=== PATIENT | male | born 1935 | race Caucasian/White ===

== ENCOUNTER → 2017-03-20 | Outpatient (CLI) | payer OTHER ==
[~2017-03-20] MED LIST: ALBUAER19 INH; ASPCH81X PO; AVD5 PO; BNDIS50 IV; CEPH500C PO; CLBPO15 TOP; DEXA10IN IV; FOLI1TAB7 PO; GADAVIST IV PRN; LEVO-366 PO; LPT/20 PO; METH2.5T PO; MOME100A INH; MRLP17 PO; PRED-301 PO; PRT40 PO; PRVHFAIN; SODI0.9S IV; SYMIN160 INH; TAMS0.4C38 PO; TRMCR515 TOP; XPNINS INH; XPNINS NEB; ZFRI4 IV; [UNRECOGNIZED DRUG - CODE] IV; [UNRECOGNIZED DRUG - CODE] IV; [UNRECOGNIZED DRUG - CODE] IV; [UNRECOGNIZED DRUG - CODE] IV; [UNRECOGNIZED DRUG - REMARK]
--- NOTE | 2017-03-20 08:01 | DIAGNOSTIC IMAGING REPORT ---
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 TECHNIQUE: Multisequence, multiplanar MR imaging of the brain was performed before and after the administration of intravenous contrast. IV contrast: 10 mL of Gadavist. COMPARISON: PET/CT from 01/24/2017. FINDINGS: Image quality is mildly degraded by motion artifact limiting diagnostic sensitivity of several sequences. Proportional ventricular and sulcal dilatation likely age-related parenchymal volume loss. Abnormal T2/FLAIR hyperintensity along the left inferior frontal region involving the overlying cortex with associated regional volume loss may indicate prior left middle cerebral artery territory infarct. No mass effect or midline shift. No hemorrhage or acute territorial infarct. No extra-axial fluid collection. T2 skull base flow voids preserved. Bilateral kaibab lenses are absent. Partially visualized large soft tissue mass at the posterior right base of the neck consistent with known disease. No abnormal parenchymal enhancement. IMPRESSION: 1. No convincing evidence of intracranial metastatic disease allowing for mild degradation of image quality secondary to motion artifact. 2. Prior left MCA territory infarct. Electronically signed by: Ricardo Osorio M.D. 03/20/2017 8:00 AM Dictated Date/Time: 03/20/2017 7:49 AM
== END | disposition home or self-care (01) ==
LOC: C.MRI 06:06
PROVIDERS: ATTEND Internal Medicine Hematology & Oncology
DX: C4A.9 Merkel cell carcinoma, unspecified (principal)

== ENCOUNTER 2017-03-26 09:51 | Day surgery (SDC) | payer OTHER ==
[~2017-03-26] VITALS: Ht 177.8 cm; Wt 100.0 kg
[~2017-03-26 09:51] MED LIST changes: +ATROPINE SULFATE 0.1 MG/ML 5ML SYR IV PRN; -AVD5 PO; -BNDIS50 IV; +CEFAZOLIN 2000 MG/60 ML D5W IV SCH; -CEPH500C PO; -DEXA10IN IV; +EpHEDrine SULFATE INJ 50 MG/ML AMP IV PRN; +FENTANYL CITRATE INJ 50 MCG/1 ML 2 ML VIAL IV PRN; -GADAVIST IV PRN; +LACTATED RINGER'S 1000ML 1,000 ML IV SCH; -LEVO-366 PO; -MOME100A INH; -MRLP17 PO; +ONDANSETRON INJ 2 MG/ML 2 ML VIAL IV PRN; -PRT40 PO; -PRVHFAIN; -SODI0.9S IV; -TAMS0.4C38 PO; -TRMCR515 TOP; -ZFRI4 IV; -[UNRECOGNIZED DRUG - CODE] IV; -[UNRECOGNIZED DRUG - CODE] IV; -[UNRECOGNIZED DRUG - CODE] IV; -[UNRECOGNIZED DRUG - CODE] IV; -[UNRECOGNIZED DRUG - REMARK]
[2017-03-26 10:10] VITALS: BP 147/78; PULSE 89; TEMP 36.5; O2SAT 97; Ht 177.8 cm; Wt 100.0 kg
--- NOTE | 2017-03-26 11:10 | History & Physical Bridge Note ---
H&P Re-Evaluation Bridge Note: I have examined the patient, reviewed the History & Physical and in the interval since the performance of the History & Physical I have noted the following changes of clinical significance: No changes noted
[2017-03-26] MEDS ORDERED: MIDAZOLAM HCL 1 MG/ML 2ML VIAL ONE ×2 (11:36→13:47)
[2017-03-26] MEDS ORDERED: FENTANYL CITRATE INJ 50 MCG/1 ML 2 ML VIAL ONE ×2 (11:36→13:47)
[2017-03-26] MEDS ORDERED: LIDOCAINE HCL 2% 2 ML VIAL (20MG/ML) ONE ×2 (11:36→14:08)
[2017-03-26] MEDS ORDERED: PROPOFOL IV EMULSION 10 MG/ML 20 ML VIAL IV ONE ×4 (11:36→14:42)
[2017-03-26] MEDS ORDERED: LIDOCAINE HCL 1% 20 ML VIAL ONE (13:49)
--- NOTE | 2017-03-26 16:05 | Anesthesiology Progress Note ---
Anesthesia Post Op Note Date & Time Mar 26, 2017 at 16:05 Vital Signs Pain Intensity: 0 Vital Signs Past 12 Hours Date Time Temp Pulse Resp B/P (MAP) Pulse Ox O2 Delivery O2 Flow Rate FiO2 03/26/17 15:51 36.7 59 18 136/76 96 Room Air 03/26/17 10:10 36.5 89 20 147/78 (101) 97 Room Air Notes Mental Status: alert / awake / arousable, participated in evaluation Pt Amnestic to Procedure: Yes Nausea / Vomiting: adequately controlled Pain: adequately controlled Airway Patency, RR, SpO2: stable & adequate BP & HR: stable & adequate Hydration State: stable & adequate Anesthetic Complications: no major complications apparent
--- NOTE | 2017-03-26 16:20 | DIAGNOSTIC IMAGING REPORT ---
SINGLE VIEW CHEST CLINICAL HISTORY: Postoperative examination. Central venous infusion port placement. FINDINGS: An AP, portable, upright chest radiograph is compared to study dated 06/03/2016. The examination is degraded by portable technique and patient rotation. A left subclavian central venous infusion port has been placed. The tip projects over the superior vena cava. There is slight irregularity/kinking of the catheter. The heart is enlarged and there is atherosclerotic calcification of the thoracic aorta. The pulmonary vasculature is noncongested. Emphysema is suspected. Chronic interstitial thickening is similar to previous, and airspace opacities are again seen at the left lung base. No pneumothorax is seen post procedure. The skeletal structures are osteopenic. Degenerative change is noted throughout the thoracic spine. IMPRESSION: 1. A left subclavian central venous infusion port is new from previous. No pneumothorax is seen post procedure. 2. There is focal irregularity/kinking of the catheter which is of indeterminant significance. 3. Cardiomegaly without radiographic evidence of congestive failure. 4. Airspace opacities are present at the left lung base, possibly representing scar/atelectasis. Correlate clinically for evidence of a superimposed infectious/inflammatory pneumonitis. Electronically signed by: Ar Méndez M.D. 03/26/2017 4:19 PM Dictated Date/Time: 03/26/2017 4:15 PM
--- NOTE | 2017-03-26 16:27 | [facility] Operative Report ---
Operative Report Operative Date Mar 26, 2017. Pre-Operative Diagnosis [place] cell carcinoma, need for chemotherapy Post-Operative Diagnosis [place] cell carcinoma, need for chemotherapy Procedure(s) Performed Infusaport Insertion, left subclavian Surgeon Dr. Donna Swenson Head Waitress Surgeon(s) none Estimated Blood Loss 10ml Findings Difficult stick, multiple attempts. Good venous flow when stick obtained, wire went up into internal jugular on first 2 attempts, directed down under fluoroscopy into superior vena cava. Fluids 800cc Specimens none per surgeon Drains None Anesthesia Monitored local anethetic, 22ml of 1% lidocaine injected subcutaneously Complication(s) None Disposition Recovery Room / PACU Indications Bhavik Pabon is an 81 year old man with [place] cell carcinoma who is in need of an Infusaport for chemotherapy administration. Indications, risks, benefits and potential complications of infusaport insertion were discussed with the patient and his family in detail. All questions answered to apparent satisfaction. Patient elected to proceed with the operation and freely signed the consent form. Description of Procedure Patient was brought to the operating room and identified as Bhavik Pabon, 31. He was placed on the operating table in supine position with a shoulder roll to open up the left subclavian area. Anesthesia was induced. The left subclavian area was prepped and draped in the usual sterile fashion. A time out was held, verifying correct patient, procedure, equipment available, pre operative antibiotics, allergies and personnel. Local anesthetic was injected at the puncture site. A finder needle was used to access the left subclavian vein. Due to large clavicles and body habitus, multiple sticks were required to access the vein. Once accessed, good venous draw back was appreciated; the wire was fed without difficulty, but was found to be ascending into the internal jugular vein on fluoroscopy. Another stick was required, and once the left subclavian was accessed, the wire was directed under fluoroscopy and was fed easily into the superior vena cava. The needle was removed over the wire, leaving the wire in place. Next, an incision was made caudally to the stick site and a subcutaneous pocket was created large enough to accomodate the infusaport. A tunnel was created from the pocket to the puncture site, and the catheter was fed through the tunnel. Next, the dilator was inserted over the wire to dilate the puncture site. The wire was removed, leaving the outer sheath in place. The catheter was fed through the sheath, verified to be in good position by fluoroscopy; the catheter was drawn back under fluoroscopy until the tip was at the junction of the superior vena cava and right atrium without ectopy on the monitor. The catheter was cut to size, and fitted to the infusaport, placing the plastic cuff tightly over the junction. Once connected , the infusaport was accessed using a Osorio needle, verified to draw back easily , and was flushed with 4cc of heparinized saline. The infusaport was secured in the subcutaneous pocket using two prolene sutures. The sponge and instrument counts were verified to be correct by the nurse in charge. Subcutaneous tissue at the infusaport pocket was approximated using 3-0 vicryl in interrupted fashion. Skin was closed over the port pocket and at the puncture site with 4-0 monocryl in running fashion and Dermabond was applied. Patient was then awakened from anesthesia and brought to the PACU, having suffered no untoward events. A chest x-ray is ordered to be completed in the PACU to verify the absence of pneumothorax. I attest to the content of the Intraoperative Record and any orders documented therein. Any exceptions are noted below.
--- NOTE | 2017-03-26 16:33 | Discharge Instructions ---
Discharge Instructions Date of Service Mar 26, 2017. Visit Reason for Visit: [place] Cell Carcinoma Discharge Discharge Diagnosis / Problem: [place] Cell Carcinoma, need for chemotherapy Discharge Goals Goal(s): Decrease discomfort, Improve function Activity Recommendations Activity Limitations: resume your previous activity Anesthesia . Post Anesthesia Instructions: If you have had General Anesthesia or IV Sedation: * Do not drive today. * Resume driving when surgeon permits. * Do not make important decisions or sign legal documents today. * Call surgeon for: 1. Temperature elevations greater than 101 degrees F. 2. Uncontrollable pain. 3. Excessive bleeding. 4. Persistent nausea and vomiting. 5. Medication intolerance (nausea, vomiting or rash). * For nausea and vomiting use only clear liquids such as: tea, soda, bouillon until nausea subsides, then gradually increase diet as tolerated. * If you have any concerns or questions, call your surgeon's office. If physician is unavailable and it is an emergency, call 911 or go to the nearest emergency room. . Diet Recommendations Recommended Home Diet: no limitations, resume previous diet Procedures Procedures Performed: Infusaport Insertion, left subclavian Pending Studies Studies pending at discharge: no Work Instructions Additional Instructions: -The Infusaport is ready to use. It may be accessed as per chemotherapy plan from your Oncologist. -You have Dermabond, like a glue, over your incisions / puncture sites. This will fall off on its own over time. You have absorbable sutures in the skin, which will not need to be removed. -You may shower - just let warm, soapy water wash gently over the surgery site. Do not scrub. -Do not soak, as in a bath tub or swimming pool for at least 2 weeks. -You do not need to follow up in Surgery Clinic unless you are having problems. You may call [phone] if you have any questions or concerns, or if you would like to schedule an appointment. -You may take Tyelnol or Ibuprofen as needed for pain; use as directed. Medical Emergencies . Who to Call and When: Medical Emergencies: If at any time you feel your situation is an emergency, please call 911 immediately. . Non-Emergent Contact Non-Emergency issues call your: Primary Care Provider, Oncologist, Surgeon Call Non-Emergent contact if: temperature is above 101, your pain is not controlled, your pain is worsening, wound has increased drainage, wound has increased redness, you have any medication questions . . "Provider Documentation" section prepared by Donna wSenson. .
[2017-03-26 16:40] VITALS: BP 157/91; PULSE 57; TEMP 36.5; O2SAT 93
[2017-03-26 17:05] VITALS: BP 165/88; PULSE 99; TEMP 36.4; O2SAT 94
== END 2017-03-26 17:20 | disposition home or self-care (01) ==
LOC: C.ACU 09:51
PROVIDERS: ATTEND Student in an Organized Health Care Education/Training Program
DX: C4A.9 Merkel cell carcinoma, unspecified (principal); J44.9 Chronic obstructive pulmonary disease, unspecified; E11.9 Type 2 diabetes mellitus without complications; K21.9 Gastro-esophageal reflux disease without esophagitis; H90.6 Mixed conductive and sensorineural hearing loss, bilateral; E66.9 Obesity, unspecified; M06.9 Rheumatoid arthritis, unspecified; Z68.39 Body mass index [BMI] 39.0-39.9, adult; N40.0 Benign prostatic hyperplasia without lower urinary tract symptoms; Z79.82 Long term (current) use of aspirin; Z79.899 Other long term (current) drug therapy

== ENCOUNTER 2017-04-20 13:03 | Emergency (ER) | payer OTHER ==
[~2017-04-20] VITALS: Ht 177.8 cm; Wt 99.7 kg
[~2017-04-20 13:03] MED LIST changes: -ATROPINE SULFATE 0.1 MG/ML 5ML SYR IV PRN; -CEFAZOLIN 2000 MG/60 ML D5W IV SCH; -CLBPO15 TOP; -EpHEDrine SULFATE INJ 50 MG/ML AMP IV PRN; -FENTANYL CITRATE INJ 50 MCG/1 ML 2 ML VIAL IV PRN; -LACTATED RINGER'S 1000ML 1,000 ML IV SCH; -ONDANSETRON INJ 2 MG/ML 2 ML VIAL IV PRN; -XPNINS INH
[2017-04-20 13:07] VITALS: TEMP 36.5; Ht 177.8 cm; Wt 99.7 kg
[2017-04-20] MEDS ORDERED: SODIUM CHLORIDE 0.9% 1000ML 1,000 ML IV STA (13:34)
[2017-04-20] MEDS ORDERED: [UNRECOGNIZED DRUG - REMARK] (13:53)
[2017-04-20] MEDS ORDERED: PRVHFAIN (13:53)
[2017-04-20 13:57] LABS: BASO % 0.4 %; BASO ABS # 0.02 K/uL (0-0.2); COMPLETE YES; EOS % 3.4 %; HEMATOCRIT 36.4 % (42-52); IG% 0.2 %; LYMPH % 17.9 %; LYMPH ABS # 0.99 K/uL (1.2-3.4); MEAN CELL VOLUME 91.5 fL (80-100); MEAN CORPUSCULAR HEMOGLOBIN 31.7 pg (25-34); MEAN CORPUSCULAR HGB CONC 34.6 g/dl (32-36); MEAN PLATELET VOLUME 10.5 fL (7.4-10.4); MONO % 9.9 %; NEUT % 68.2 %; PLATELET COUNT 148 K/uL (130-400); RED BLOOD COUNT 3.98 M/uL (4.7-6.1); WHITE BLOOD COUNT 5.53 K/uL (4.8-10.8)
[2017-04-20 14:13] LABS: BUN/CREATININE RATIO 19.8 (10-20); CALCIUM 8.6 mg/dl (8.5-10.1); CREATININE 0.88 mg/dl (0.60-1.40); MAGNESIUM 2.3 mg/dl (1.8-2.4)
--- NOTE | 2017-04-20 14:14 | DIAGNOSTIC IMAGING REPORT ---
CHEST ONE VIEW PORTABLE CLINICAL HISTORY: Weakness. Tachycardia. COMPARISON STUDY: Chest radiograph March 26, 2017 and PET/CT March 21, 2017. FINDINGS: A left subclavian [id number] remains in place. Mild cardiomegaly is unchanged. There is no evidence of pulmonary edema. No pneumothorax or pleural effusion is present. There is no consolidation to suggest pneumonia. Left lower lung interstitial thickening is unchanged and likely chronic. IMPRESSION: No change in appearance of the chest. Stable cardiomegaly and left lower lung interstitial thickening which is likely chronic. Electronically signed by: Anders Tripp M.D. 04/20/2017 2:13 PM Dictated Date/Time: 04/20/2017 2:11 PM
[2017-04-20 14:16] LABS: ALB/GLOB RATIO 0.9 (0.9-2)
[2017-04-20] MEDS ORDERED: OPTIRAY 320 IV PRN (15:15)
[2017-04-20 15:35] LABS: URINE APPEARANCE CLOUDY (CLEAR); URINE BILIRUBIN NEG (NEG); URINE COLOR YELLOW; URINE NITRITE NEG (NEG); URINE SPECIFIC GRAVITY 1.019 (1.000-1.030); UROBILINOGEN NEG (NEG); ZZURINE CULT IF INDIC CATH YES
[2017-04-20 15:36] LABS: MANUAL MICROSCOPIC REQUIRED? NO; REVIEW REQ? YES
[2017-04-20 15:45] LABS: URINE MUCUS PRESENT (NONE PRSENT)
--- NOTE | 2017-04-20 16:02 | DIAGNOSTIC IMAGING REPORT ---
CT OF THE ABDOMEN AND PELVIS WITH CONTRAST CLINICAL HISTORY: Lower abdominal pain and diarrhea. COMPARISON STUDY: PET/CT March 21, 2017. TECHNIQUE: Following IV administration of 93 mL of Optiray-320, axial images of the abdomen and pelvis were obtained from the lung bases to the proximal femurs. Images were reviewed in the axial, sagittal, and coronal planes. IV contrast was administered without complication. A dose lowering technique was utilized adhering to the principles of ALARA. CT DOSE: 939.62 mGycm FINDINGS: Visualized portions of the lower chest demonstrate bronchiectasis, greatest within the left lower lobe and lingula. There are subpleural reticulation with possible early honeycombing. A 5 mm hypodense right hepatic lobe lesion is too small to characterize but is likely benign. There is slight nodularity of the liver surface. There is no biliary or pancreatic ductal dilatation. The spleen, adrenal glands, kidneys and pancreas are unremarkable with exception of a 7 mm left renal cyst. There is a 3 cm infrarenal abdominal aortic aneurysm without evidence for rupture. Extensive colonic diverticulosis is noted without evidence for acute diverticulitis. The appendix is normal. There are bilateral fat-containing inguinal hernias. The urinary bladder is moderately distended. There is mild adjacent infiltration. There are no suspicious osseous lesions. There is no lymphadenopathy. IMPRESSION: 1. Moderate distention of the urinary bladder with mild adjacent infiltration which could be correlated with urinalysis. Mildly enlarged prostate. 2. Extensive colonic diverticulosis without evidence for acute diverticulitis. Normal appendix. 3. 3 cm infrarenal abdominal aortic aneurysm. Electronically signed by: Anders Tripp M.D. 04/20/2017 4:01 PM Dictated Date/Time: 04/20/2017 3:51 PM
--- NOTE | 2017-04-20 17:00 | EMERGENCY ROOM VISIT NOTE ---
ED Visit Note First contact with patient: 13:14 Patient was seen by our PA/CAR BRACER. I was involved in the patient's care and did evaluate the patient myself. I was involved in the care throughout the ER stay. The patient has neck cancer. He presents with some urinary and bowel issues. He has been hydrated. He does appear to have some urinary retention with a UTI. He will be treated for this problem. He does not want to stay in the hospital. He has agreed to return if worsening.
[2017-04-20] MEDS ORDERED: CEFTRIAXONE SOD INJ 1 GM ADDVIAL IV STA (17:02)
[2017-04-20] MEDS ORDERED: CEPH500C PO (17:22)
--- NOTE | 2017-04-20 17:25 | EMERGENCY ROOM VISIT NOTE ---
History First contact with patient: 13:14 Chief Complaint: DEHYDRATION Stated Complaint: DEYHYRADTED,HIGH HR,LOSS OF BOWELS/BLADDER Nursing Triage Summary: pt arrives with family from Dr Self office , states pt has had loss of control of Bowel and bladder 2 days ago , pt denies pain in neck , pt currently being tx with chemo and radiation for tumor on R side of neck History of Present Illness The patient is a 81 year old male who presents to the Emergency Room with complaints of possible dehydration. 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 He states that over the past 2 days, he has had diarrhea and has been unable to control his urination. He has had a few episodes of urinary incontinence. The patient has not had much to eat. He saw his primary care provider's office today and was sent here for evaluation of possible dehydration. He was told that his blood pressure was low for him and his heart rate was elevated. The patient did have some abdominal discomfort a few days ago, but denies any pain at this time. He denies any discomfort at this time. He denies fevers/chills, chest pain or shortness of breath. He denies any blood in the stools. He denies recent antibiotic use. Review of Systems A complete 10 point review of systems was reviewed with the patient with pertinent positives and negatives as per history of present illness. All else were negative. Past Medical/Surgical History Medical Problems: (1) BPH (benign prostatic hypertrophy) (2) Bronchiectasis (3) Chronic steroid use (4) COPD (chronic obstructive pulmonary disease) (5) Dyslipidemia (6) Eczema (7) GERD (gastroesophageal reflux disease) (8) Pulmonary fibrosis (9) PVC's (premature ventricular contractions) (10) Rheumatoid arthritis (11) Thoracic aortic aneurysm Surgical Problems: (1) Status post appendectomy Family History Cirrhosis of liver BROTHER Leukemia MOTHER Social History Smoking Status: Never Smoker Marital Status: Housing Status: lives with family Occupation Status: retired Current/Historical Medications Scheduled Aspirin (Aspirin Chewable), 81 MG PO DAILY Atorvastatin (Atorvastatin Calcium), 20 MG PO DAILY Budesonide/Formoterol Fumarate (Symbicort 160/4.5 Inhaler ), 2 PUFFS INH BID Cephalexin Monohydrate (Keflex), 500 MG PO TID Folic Acid (Folvite), 1 MG PO DAILY Methotrexate Sodium (Methotrexate), 7.5 MG PO WK Prednisone (Prednisone), 2.5 MG PO QAM Scheduled PRN Levalbuterol (Levalbuterol HCl), 3 ML NEB Q8 PRN for Wheezing Miscellaneous Medications Albuterol (Ventolin Hfa) [chemo radiation] Physical Exam Vital Signs Date Time Temp Pulse Resp B/P (MAP) Pulse Ox O2 Delivery O2 Flow Rate FiO2 04/20/17 18:56 68 18 135/71 95 04/20/17 18:39 67 18 136/76 94 Room Air 04/20/17 17:10 71 18 144/80 95 Room Air 04/20/17 15:59 73 18 145/99 97 Room Air 04/20/17 14:15 73 18 127/81 93 Room Air 04/20/17 13:35 79 04/20/17 13:07 36.5 84 20 159/90 95 Room Air Pain Rating (0-10): 0 Physical Exam VITALS: Vitals are noted on the nurse's note and reviewed by myself. Vital signs stable. GENERAL: This is an 81-year-old male, in no acute distress, nondiaphoretic, well -developed well-nourished. EARS: External auditory canals clear, tympanic membranes pearly hale without erythema or effusion bilaterally. EYES: Pupils equal round and reactive to light and accommodation. Conjunctivae without injection, sclerae without icterus. Extraocular movements intact. MOUTH: Mucous membranes moist. NECK: There is a large mass to the right side of the neck. HEART: Regular rate and rhythm without murmurs gallops or rubs. LUNGS: Clear to auscultation bilaterally without wheezes, rales or rhonchi. ABDOMEN: Soft, nontender to palpation. NEURO: Patient was alert and oriented to person place and time. Medical Decision & Procedures ER Provider Diagnostic Interpretation: CHEST ONE VIEW PORTABLE FINDINGS: A left subclavian Fegben-a-Gtlo remains in place. Mild cardiomegaly is unchanged. There is no evidence of pulmonary edema. No pneumothorax or pleural effusion is present. There is no consolidation to suggest pneumonia. Left lower lung interstitial thickening is unchanged and likely chronic. IMPRESSION: No change in appearance of the chest. Stable cardiomegaly and left lower lung interstitial thickening which is likely chronic. CT OF THE ABDOMEN AND PELVIS WITH CONTRAST FINDINGS: Visualized portions of the lower chest demonstrate bronchiectasis, greatest within the left lower lobe and lingula. There are subpleural reticulation with possible early honeycombing. A 5 mm hypodense right hepatic lobe lesion is too small to characterize but is likely benign. There is slight nodularity of the liver surface. There is no biliary or pancreatic ductal dilatation. The spleen, adrenal glands, kidneys and pancreas are unremarkable with exception of a 7 mm left renal cyst. There is a 3 cm infrarenal abdominal aortic aneurysm without evidence for rupture. Extensive colonic diverticulosis is noted without evidence for acute diverticulitis. The appendix is normal. There are bilateral fat-containing inguinal hernias. The urinary bladder is moderately distended. There is mild adjacent infiltration. There are no suspicious osseous lesions. There is no lymphadenopathy. IMPRESSION: 1. Moderate distention of the urinary bladder with mild adjacent infiltration which could be correlated with urinalysis. Mildly enlarged prostate. 2. Extensive colonic diverticulosis without evidence for acute diverticulitis. Normal appendix. 3. 3 cm infrarenal abdominal aortic aneurysm. Laboratory Results 04/20/17 13:40 Red Blood Count 3.98, Mean Corpuscular Volume 91.5, Mean Corpuscular Hemoglobin 31.7, Mean Corpuscular Hemoglobin Concent 34.6, Mean Platelet Volume 10.5, Neutrophils (%) (Auto) 68.2, Lymphocytes (%) (Auto) 17.9, Monocytes (%) (Auto) 9.9, Eosinophils (%) (Auto) 3.4, Basophils (%) (Auto) 0.4, Neutrophils # (Auto) 3.77, Lymphocytes # (Auto) 0.99, Monocytes # (Auto) 0.55, Eosinophils # (Auto) 0.19, Basophils # (Auto) 0.02 04/20/17 13:40 Test 04/20/17 13:40 04/20/17 15:05 White Blood Count 5.53 K/uL (4.8-10.8) Red Blood Count 3.98 M/uL (4.7-6.1) Hemoglobin 12.6 g/dL (14.0-18.0) Hematocrit 36.4 % (42-52) Mean Corpuscular Volume 91.5 fL (80-100) Mean Corpuscular Hemoglobin 31.7 pg (25-34) Mean Corpuscular Hemoglobin Concent 34.6 g/dl (32-36) Platelet Count 148 K/uL (130-400) Mean Platelet Volume 10.5 fL (7.4-10.4) Neutrophils (%) (Auto) 68.2 % Lymphocytes (%) (Auto) 17.9 % Monocytes (%) (Auto) 9.9 % Eosinophils (%) (Auto) 3.4 % Basophils (%) (Auto) 0.4 % Neutrophils # (Auto) 3.77 K/uL (1.4-6.5) Lymphocytes # (Auto) 0.99 K/uL (1.2-3.4) Monocytes # (Auto) 0.55 K/uL (0.11-0.59) Eosinophils # (Auto) 0.19 K/uL (0-0.5) Basophils # (Auto) 0.02 K/uL (0-0.2) RDW Standard Deviation 52.1 fL (36.4-46.3) RDW Coefficient of Variation 15.9 % (11.5-14.5) Immature Granulocyte % (Auto) 0.2 % Immature Granulocyte # (Auto) 0.01 K/uL (0.00-0.02) Anion Gap 6.0 mmol/L (3-11) Est Creatinine Clear Calc Drug Dose 75.3 ml/min Estimated GFR () 92.1 Estimated GFR (Non- 79.4 BUN/Creatinine Ratio 19.8 (10-20) Calcium Level 8.6 mg/dl (8.5-10.1) Magnesium Level 2.3 mg/dl (1.8-2.4) Total Bilirubin 0.8 mg/dl (0.2-1) Aspartate Amino Transf (AST/SGOT) 24 U/L (15-37) Alanine Aminotransferase (ALT/SGPT) 28 U/L (12-78) Alkaline Phosphatase 73 U/L (45-117) Total Protein 6.2 gm/dl (6.4-8.2) Albumin 2.9 gm/dl (3.4-5.0) Globulin 3.3 gm/dl (2.5-4.0) Albumin/Globulin Ratio 0.9 (0.9-2) Urine Color YELLOW Urine Appearance CLOUDY (CLEAR) Urine pH 6.0 (4.5-7.5) Urine Specific [place] 1.019 (1.000-1.030) Urine Protein NEG (NEG) Urine Glucose (UA) NEG (NEG) Urine Ketones NEG (NEG) Urine Occult Blood NEG (NEG) Urine Nitrite NEG (NEG) Urine Bilirubin NEG (NEG) Urine Urobilinogen NEG (NEG) Urine Leukocyte Esterase LARGE (NEG) Urine WBC (Auto) >30 /hpf (0-5) Urine RBC (Auto) 0-4 /hpf (0-4) Urine Hyaline Casts (Auto) 10-30 /lpf (0-5) Urine Epithelial Cells (Auto) 10-20 /lpf (0-5) Urine Bacteria (Auto) NEG (NEG) Urine Mucus PRESENT (NONE PRSENT) Urine Yeast (Auto) BUDDING (NONE PRSENT) Date/Time Source Procedure Growth Status 04/20/17 15:05 Stool C.difficile Toxin B Gene (PCR) - Final No C. difficile toxin B gene detected Complete Medications Administered Medications (Trade) Dose Ordered Sig/Maryam Route Start Time Stop Time Status Last Admin Dose Admin Sodium Chloride 1,000 ml @ 999 mls/hr Q1H1M STAT IV 04/20/17 13:34 04/20/17 14:34 DC 04/20/17 13:41 999 MLS/HR Ceftriaxone Sodium (Rocephin Inj) 1 gm NOW STAT IV 04/20/17 17:02 04/20/17 17:03 DC 04/20/17 17:22 1 GM Heparin Sodium (Porcine) (Heparin 100 Unit/ml 5ml Flush) 5 ml [employer]-MED ONCE .ROUTE 04/20/17 18:30 04/20/17 18:31 DC 04/20/17 18:30 5 ML ECG Rate (beats per minute): 93 Rhythm: normal sinus (with multiple premature supraventricular complexes) Findings: other (widened QRS) Comparison ECG Date: premature supraventricular complexes no present ED Course The patient was evaluated as above. Labs were drawn and IV access was obtained. Patient was medicated with 1 L normal saline solution. Imaging studies were performed and read by radiology as above. Patient was reevaluated and findings were discussed. A Russell catheter was inserted. Discharge instructions were reviewed with the patient. The patient verbalized understanding of my assessment and treatment plan and was discharged home in good condition. Medical Decision Differential diagnosis includes dehydration, electrolyte imbalance, urinary tract infection, C. difficile, colitis, diverticulitis, among others. The patient is a 81-year-old male who presents today complaining of possible dehydration and urinary incontinence. Patient had a recent PET scan which showed no evidence of bony metastasis. Labs revealed no leukocytosis, anemia or concerning electrolyte abnormalities. Urinalysis was suggestive of infection. CT of the abdomen and pelvis showed only evidence of urinary tract infection and no other acute findings. Patient is not able to empty his bladder and for this reason a Russell catheter was inserted. He was given referral to urology. He was given a dose of Rocephin and placed on Keflex. He was instructed to follow-up with his primary care provider and encouraged to return here if he has any worsening symptoms. Based on the patient's presentation and work up, I feel the patient is stable for outpatient treatment. The patient was educated to return to the emergency department for any worsening of their current condition or new/concerning symptoms. He will follow up with his PCP and urology. The patient was independently evaluated by Dr. Parekh, ED attending physician, who agreed with my assessment and treatment plan. Medication Reconcilliation Current Medication List: was personally reviewed by me Blood Pressure Screening Patient's blood pressure: Normal blood pressure Impression Primary Impression: Urinary tract infection Departure Information Dispostion Home / Self-Care Condition GOOD Prescriptions Cephalexin Monohydrate (Keflex) 500 Mg Cap 500 MG PO TID for 7 Days, #21 CAP Prov: Tali Durant .RICCO 04/20/17 Referrals Blane Marrero MD (PCP) Gary Benoit M.D. Patient Instructions ED Catheter [facility], [facility] Additional Instructions Your workup today was consistent with a bladder infection. You were prescribed Keflex to be taken 3 times daily for 7 days. This is an antibiotic. All antibiotics have the potential to cause diarrhea. Stop this medication and contact a medical provider if you were to develop any significant adverse side effects including: wheezing, shortness of breath, passing out, vomiting, or a diffuse rash. Always take antibiotics as directed and COMPLETE the ENTIRE course regardless of the improvement of your symptoms. Drink plenty of water to stay well hydrated. Follow-up with your primary care provider for a recheck. Call the urologist's office (Dr. Benoit) to schedule an appointment next week for removal of the Russell catheter. Return here for worsening abdominal pain, fevers, or any other new/concerning symptoms.
[2017-04-20 18:56] VITALS: BP 135/71; PULSE 68; O2SAT 95
== END 2017-04-20 18:57 | disposition home or self-care (01) ==
LOC: C.EDB 13:04 → C.EDC 18:57
DX: N39.0 Urinary tract infection, site not specified (principal); R33.9 Retention of urine, unspecified; E78.5 Hyperlipidemia, unspecified; K21.9 Gastro-esophageal reflux disease without esophagitis; J44.9 Chronic obstructive pulmonary disease, unspecified; M06.9 Rheumatoid arthritis, unspecified; Z98.890 Other specified postprocedural states; Z79.82 Long term (current) use of aspirin; Z79.899 Other long term (current) drug therapy; Z85.828 Personal history of other malignant neoplasm of skin

== ENCOUNTER 2017-05-03 08:09 | Emergency (ER) | payer OTHER ==
[~2017-05-03] VITALS: Ht 177.8 cm; Wt 97.2 kg
[~2017-05-03 08:09] MED LIST changes: -ALBUAER19 INH; +[UNRECOGNIZED DRUG - REMARK]
[2017-05-03 08:11] VITALS: TEMP 36.5; Ht 177.8 cm; Wt 97.2 kg
[2017-05-03] MEDS ORDERED: SODIUM CHLORIDE 0.9% 1000ML 1,000 ML IV STA (08:35)
[2017-05-03] MEDS ORDERED: FENTANYL CITRATE INJ 50 MCG/1 ML 2 ML VIAL IV STA (08:35)
[2017-05-03] MEDS ORDERED: OPTIRAY 320 IV PRN (08:45)
--- NOTE | 2017-05-03 09:22 | DIAGNOSTIC IMAGING REPORT ---
CHEST ONE VIEW PORTABLE CLINICAL HISTORY: SOB, weakness, decreased on left base, eval pna COMPARISON STUDY: 04/20/2017 FINDINGS: The cardiac and mediastinal contours remain stable. There is a left-sided A-Port catheter unchanged in position. There is no failure. There is no lobar consolidation. There are chronic interstitial changes at the lung bases left greater than right, similar to the preceding study.[ IMPRESSION: Chronic basilar interstitial lung disease. No acute findings. Electronically signed by: Tulio Calloway M.D. 05/03/2017 9:21 AM Dictated Date/Time: 05/03/2017 8:57 AM
[2017-05-03 09:32] LABS: BASO % 0.4 %; BASO ABS # 0.01 K/uL (0-0.2); COMPLETE YES; EOS % 3.5 %; HEMATOCRIT 35.2 % (42-52); LYMPH % 21.6 %; LYMPH ABS # 0.61 K/uL (1.2-3.4); MEAN CELL VOLUME 93.6 fL (80-100); MEAN CORPUSCULAR HEMOGLOBIN 31.6 pg (25-34); MEAN CORPUSCULAR HGB CONC 33.8 g/dl (32-36); MEAN PLATELET VOLUME 10.5 fL (7.4-10.4); MONO % 10.2 %; NEUT % 64.3 %; PLATELET COUNT 132 K/uL (130-400); RED BLOOD COUNT 3.76 M/uL (4.7-6.1); WHITE BLOOD COUNT 2.83 K/uL (4.8-10.8)
[2017-05-03 09:42] LABS: PROTHROMBIN TIME (PATIENT) 10.5 SECONDS (9.0-12.0)
[2017-05-03 09:50] LABS: ALT/SGPT 34 U/L (12-78); AST/SGOT 25 U/L (15-37); BLOOD UREA NITROGEN 20 mg/dl (7-18); BUN/CREATININE RATIO 21.1 (10-20); CALCIUM 8.8 mg/dl (8.5-10.1); CARBON DIOXIDE 25 mmol/L (21-32); CHLORIDE 109 mmol/L (98-107); CREATININE 0.93 mg/dl (0.60-1.40); GLUCOSE 108 mg/dl (70-99); SODIUM 141 mmol/L (136-145)
[2017-05-03] MEDS ORDERED: ZFRI4 IV (09:51)
[2017-05-03] MEDS ORDERED: TAMS0.4C38 PO (09:51)
[2017-05-03] MEDS ORDERED: BNDIS50 IV (09:51)
[2017-05-03] MEDS ORDERED: AVD5 PO (09:51)
[2017-05-03] MEDS ORDERED: [UNRECOGNIZED DRUG - CODE] IV (09:51)
[2017-05-03] MEDS ORDERED: SODI0.9S IV (09:51)
[2017-05-03] MEDS ORDERED: [UNRECOGNIZED DRUG - CODE] IV (09:51)
[2017-05-03] MEDS ORDERED: DEXA10IN IV (09:51)
[2017-05-03] MEDS ORDERED: [UNRECOGNIZED DRUG - CODE] IV (09:51)
[2017-05-03] MEDS ORDERED: [UNRECOGNIZED DRUG - CODE] IV (09:51)
[2017-05-03 09:53] LABS: URINE APPEARANCE CLEAR (CLEAR); URINE BILIRUBIN NEG (NEG); URINE COLOR YELLOW; URINE NITRITE POS (NEG); URINE SPECIFIC GRAVITY 1.013 (1.000-1.030); UROBILINOGEN NEG (NEG)
[2017-05-03 09:54] LABS: MANUAL MICROSCOPIC REQUIRED? NO; REVIEW REQ? NO
[2017-05-03 09:55] LABS: ALKALINE PHOSPHATASE 70 U/L (45-117)
--- NOTE | 2017-05-03 11:27 | DIAGNOSTIC IMAGING REPORT ---
ABD/PELVIS IV CONTRAST ONLY CLINICAL HISTORY: 81 years-old Male presenting with lower abd pain, hematuria, trouble urinating, known infrarenal aneurysm. TECHNIQUE: Multidetector CT of the abdomen and pelvis was performed after the administration of intravenous contrast. IV contrast: 91 mL of Optiray 320. A dose lowering technique was used consistent with the principles of ALARA (as low as reasonably achievable). COMPARISON: 04/20/2017. CT DOSE (mGy.cm): The estimated cumulative dose is 970.32 mGycm. FINDINGS: Database Report Writer topogram: Unremarkable. Lung bases: Subpleural reticulation and possible early honeycombing. Subtle bronchiectasis may be present. Normal heart size. No pericardial or pleural effusion. Liver: Nodular contour of the liver could suggest cirrhosis. No focal lesion allowing for the single phase. Patent hepatic vasculature. Biliary: No intrahepatic or extrahepatic biliary ductal dilatation. Normal gallbladder. Pancreas: Moderate parenchymal atrophy. Spleen: Normal. Adrenal glands: Normal. Kidneys and ureters: Subcentimeter hypodensity in the left kidney too small to characterize but likely cyst. No nephrolithiasis. No hydronephrosis. Ureters normal. Bladder: Irregular bladder wall thickening. Multiple bladder diverticula. Gas noted within the bladder. Pelvic organs: Prostate enlargement likely secondary to benign prostatic hyperplasia. Bowel: Diverticulosis throughout the colon. Normal appendix. No bowel obstruction. Peritoneal cavity: No free fluid or intraperitoneal gas. Vasculature: Atherosclerosis of the aorta with mild ectasia of the infrarenal portion measuring up to 3 cm. IVC patent. Lymph nodes: No enlarged lymph nodes in the abdomen or pelvis. Abdominal wall: Fat-containing bilateral inguinal hernias. Fat-containing hernia lateral to the left transversalis and oblique muscles. Small bowel containing right Spigelian hernia Musculoskeletal: Degenerative changes of the spine. IMPRESSION: 1. Irregular bladder wall thickening. Although this could be due to chronic outlet obstruction secondary to prostatomegaly, direct visualization to be considered. Correlate with urinalysis to exclude cystitis. The presence of gas within the bladder could relate to recent catheterization. Correlate clinically. 2. Fibrotic changes of the lung bases raise concern for honeycombing suggesting a usual interstitial pneumonia pattern. 3. Multiple hernias. 4. Diverticulosis. Electronically signed by: Ricardo Osorio M.D. 05/03/2017 11:26 AM Dictated Date/Time: 05/03/2017 11:19 AM
[2017-05-03] MEDS ORDERED: LEVOFLOXACIN 250 MG TAB PO STA (13:44)
[2017-05-03] MEDS ORDERED: LEVO-366 PO (15:10)
--- NOTE | 2017-05-03 15:14 | EMERGENCY ROOM VISIT NOTE ---
History First contact with patient: 08:21 Chief Complaint: URINARY SYMPTOMS Stated Complaint: BLEEDING, CAN'T URINATE, DOESN'T FEEL GOOD Nursing Triage Summary: Blood in urine. Urinary retention. "does not feel good overall". History of Present Illness The patient is a 81 year old male who presents to the Emergency Room with complaints of lower abdominal pain and blood in his urine that started yesterday. He states "I just feel crappy all over." He was recently treated for acute urinary retention and UTI, had a Russell catheter placed and will have follow up with Dr. Benoit of urology. The patient states he had the Russell catheter in for about a week and a half, this was removed 2 days ago. He was instructed to straight cath at home, however he states he has been having some difficulty with this and when he does straight cath, he gets out large amounts of blood and clots. He states that he has not performed straight cath since yesterday afternoon. Today he is having severe spasms of pain in his lower abdomen. He denies fevers or chills, nausea, vomiting, back pain, chest pain or shortness of breath, diarrhea or changes in stool, blood in stool. He does not take any blood thinners. Review of Systems A complete 10 point review of systems was reviewed with the patient with pertinent positives and negatives as per history of present illness. All else were negative. Past Medical/Surgical History Medical Problems: (1) BPH (benign prostatic hypertrophy) (2) Bronchiectasis (3) Chronic steroid use (4) COPD (chronic obstructive pulmonary disease) (5) Dyslipidemia (6) Eczema (7) GERD (gastroesophageal reflux disease) (8) Pulmonary fibrosis (9) PVC's (premature ventricular contractions) (10) Rheumatoid arthritis (11) Thoracic aortic aneurysm Surgical Problems: (1) Status post appendectomy Family History Cirrhosis of liver BROTHER Leukemia MOTHER Social History Smoking Status: Never Smoker Marital Status: Housing Status: lives with family Occupation Status: retired Current/Historical Medications Scheduled Carboplatin (Carboplatin), 207 MG IV ONCE Dexamethasone Sodium Phosphate (Dexamethasone Sodium Phos), 10 MG IV ONCE Dutasteride (Avodart), 0.5 MG PO DAILY Levofloxacin (Levaquin), 500 MG PO DAILY Ondansetron (Ondansetron Hcl), 16 MG IV ONCE Sodium Chloride (Gu Irrigant) (Sodium Chloride 0.9%), 500 ML IV CONTINOUS Tamsulosin Hcl (Flomax), 0.4 MG PO HS Scheduled PRN Diphenhydramine Hcl (Diphenhydramine Hcl), 50 MG IV UD PRN for OTHER Heparin Sod (Porcine) (Heparin Lock Flush), 5 ML IV UD PRN for OTHER Methylprednisolone Sod Succ (Solu-Medrol), 125 MG IV UD PRN for OTHER Sodium Chloride Flush (Sodium Chloride Flush), 10 ML IV UD PRN for OTHER Physical Exam Vital Signs Date Time Temp Pulse Resp B/P (MAP) Pulse Ox O2 Delivery O2 Flow Rate FiO2 05/03/17 15:32 65 18 123/66 95 Room Air 05/03/17 13:04 76 05/03/17 12:56 74 18 141/84 92 Room Air 05/03/17 11:40 68 17 128/67 94 05/03/17 10:54 77 16 128/79 93 Room Air 05/03/17 09:54 78 18 119/76 92 Room Air 05/03/17 09:54 80 05/03/17 09:52 70 05/03/17 08:11 36.5 68 24 134/69 95 Room Air Physical Exam CONSTITUTIONAL: No acute distress. Nontoxic appearing. So good Well appearing and well nourished. Alert and oriented X 4 with normal affect. HEENT: Normocephalic, atraumatic. Pupils equal, round and reactive to light, EOMI. TMs normal. Pharynx normal. NECK: Supple, full active range of motion without discomfort. RESPIRATORY: Clear to auscultation bilaterally with no wheezing, crackles, rhonchi or stridor. Equal expansion bilaterally. CARDIOVASCULAR: Regular rate and rhythm with no murmurs, rubs or gallops. Normal peripheral perfusion. No edema. GASTROINTESTINAL: Moderate tenderness in the suprapubic region to palpation, no rebound or guarding. Abdomen is otherwise nontender. No CVA tenderness. Soft , nondistended. Bowel sounds present in all quadrants. MUSCULOSKELETAL: Full range of motion of all joints without discomfort. INTEGUMENTARY: No rash or other significant dermatologic conditions noted. NEUROLOGIC: Cranial nerves II-XII grossly intact. No focal neurologic deficits noted. Medical Decision & Procedures ER Provider Diagnostic Interpretation: CHEST ONE VIEW PORTABLE CLINICAL HISTORY: SOB, weakness, decreased on left base, eval pna COMPARISON STUDY: 04/20/2017 FINDINGS: The cardiac and mediastinal contours remain stable. There is a left-sided A-Port catheter unchanged in position. There is no failure. There is no lobar consolidation. There are chronic interstitial changes at the lung bases left greater than right, similar to the preceding study. IMPRESSION: Chronic basilar interstitial lung disease. No acute findings. ----- ABD/PELVIS IV CONTRAST ONLY CLINICAL HISTORY: 81 years-old Male presenting with lower abd pain, hematuria, trouble urinating, known infrarenal aneurysm. TECHNIQUE: Multidetector CT of the abdomen and pelvis was performed after the administration of intravenous contrast. IV contrast: 91 mL of Optiray 320. A dose lowering technique was used consistent with the principles of ALARA (as low as reasonably achievable). COMPARISON: 04/20/2017. CT DOSE (mGy.cm): The estimated cumulative dose is 970.32 mGycm. FINDINGS: Corporate Analyst topogram: Unremarkable. Lung bases: Subpleural reticulation and possible early honeycombing. Subtle bronchiectasis may be present. Normal heart size. No pericardial or pleural effusion. Liver: Nodular contour of the liver could suggest cirrhosis. No focal lesion allowing for the single phase. Patent hepatic vasculature. Biliary: No intrahepatic or extrahepatic biliary ductal dilatation. Normal gallbladder. Pancreas: Moderate parenchymal atrophy. Spleen: Normal. Adrenal glands: Normal. Kidneys and ureters: Subcentimeter hypodensity in the left kidney too small to characterize but likely cyst. No nephrolithiasis. No hydronephrosis. Ureters normal. Bladder: Irregular bladder wall thickening. Multiple bladder diverticula. Gas noted within the bladder. Pelvic organs: Prostate enlargement likely secondary to benign prostatic hyperplasia. Bowel: Diverticulosis throughout the colon. Normal appendix. No bowel obstruction. Peritoneal cavity: No free fluid or intraperitoneal gas. Vasculature: Atherosclerosis of the aorta with mild ectasia of the infrarenal portion measuring up to 3 cm. IVC patent. Lymph nodes: No enlarged lymph nodes in the abdomen or pelvis. Abdominal wall: Fat-containing bilateral inguinal hernias. Fat-containing hernia lateral to the left transversalis and oblique muscles. Small bowel containing right Spigelian hernia Musculoskeletal: Degenerative changes of the spine. IMPRESSION: 1. Irregular bladder wall thickening. Although this could be due to chronic outlet obstruction secondary to prostatomegaly, direct visualization to be considered. Correlate with urinalysis to exclude cystitis. The presence of gas within the bladder could relate to recent catheterization. Correlate clinically. 2. Fibrotic changes of the lung bases raise concern for honeycombing suggesting a usual interstitial pneumonia pattern. 3. Multiple hernias. 4. Diverticulosis. Laboratory Results 05/03/17 09:05 Red Blood Count 3.76, Mean Corpuscular Volume 93.6, Mean Corpuscular Hemoglobin 31.6, Mean Corpuscular Hemoglobin Concent 33.8, Mean Platelet Volume 10.5, Neutrophils (%) (Auto) 64.3, Lymphocytes (%) (Auto) 21.6, Monocytes (%) (Auto) 10.2, Eosinophils (%) (Auto) 3.5, Basophils (%) (Auto) 0.4, Neutrophils # (Auto ) 1.82, Lymphocytes # (Auto) 0.61, Monocytes # (Auto) 0.29, Eosinophils # (Auto ) 0.10, Basophils # (Auto) 0.01 05/03/17 09:05 Test 05/03/17 09:05 05/03/17 09:20 White Blood Count 2.83 K/uL (4.8-10.8) Red Blood Count 3.76 M/uL (4.7-6.1) Hemoglobin 11.9 g/dL (14.0-18.0) Hematocrit 35.2 % (42-52) Mean Corpuscular Volume 93.6 fL (80-100) Mean Corpuscular Hemoglobin 31.6 pg (25-34) Mean Corpuscular Hemoglobin Concent 33.8 g/dl (32-36) Platelet Count 132 K/uL (130-400) Mean Platelet Volume 10.5 fL (7.4-10.4) Neutrophils (%) (Auto) 64.3 % Lymphocytes (%) (Auto) 21.6 % Monocytes (%) (Auto) 10.2 % Eosinophils (%) (Auto) 3.5 % Basophils (%) (Auto) 0.4 % Neutrophils # (Auto) 1.82 K/uL (1.4-6.5) Lymphocytes # (Auto) 0.61 K/uL (1.2-3.4) Monocytes # (Auto) 0.29 K/uL (0.11-0.59) Eosinophils # (Auto) 0.10 K/uL (0-0.5) Basophils # (Auto) 0.01 K/uL (0-0.2) RDW Standard Deviation 57.9 fL (36.4-46.3) RDW Coefficient of Variation 17.8 % (11.5-14.5) Immature Granulocyte % (Auto) 0.0 % Immature Granulocyte # (Auto) 0.00 K/uL (0.00-0.02) Prothrombin Time 10.5 SECONDS (9.0-12.0) Prothromb Time International Ratio 1.0 (0.9-1.1) Activated Partial Thromboplast Time 25.4 SECONDS (21.0-31.0) Partial Thromboplastin Ratio 1.0 Anion Gap 7.0 mmol/L (3-11) Est Creatinine Clear Calc Drug Dose 70.4 ml/min Estimated GFR () 87.7 Estimated GFR (Non- 75.7 BUN/Creatinine Ratio 21.1 (10-20) Calcium Level 8.8 mg/dl (8.5-10.1) Total Bilirubin 0.9 mg/dl (0.2-1) Direct Bilirubin 0.2 mg/dl (0-0.2) Aspartate Amino Transf (AST/SGOT) 25 U/L (15-37) Alanine Aminotransferase (ALT/SGPT) 34 U/L (12-78) Alkaline Phosphatase 70 U/L (45-117) Troponin I < 0.015 ng/ml (0-0.045) Total Protein 6.1 gm/dl (6.4-8.2) Albumin 2.9 gm/dl (3.4-5.0) Lipase 86 U/L (73-393) Urine Color YELLOW Urine Appearance CLEAR (CLEAR) Urine pH 7.0 (4.5-7.5) Urine Specific Hayden 1.013 (1.000-1.030) Urine Protein NEG (NEG) Urine Glucose (UA) NEG (NEG) Urine Ketones NEG (NEG) Urine Occult Blood NEG (NEG) Urine Nitrite POS (NEG) Urine Bilirubin NEG (NEG) Urine Urobilinogen NEG (NEG) Urine Leukocyte Esterase TRACE (NEG) Urine WBC (Auto) 10-30 /hpf (0-5) Urine RBC (Auto) 0-4 /hpf (0-4) Urine Hyaline Casts (Auto) 1-5 /lpf (0-5) Urine Epithelial Cells (Auto) 10-20 /lpf (0-5) Urine Bacteria (Auto) 1+ (NEG) Medications Administered Medications (Trade) Dose Ordered Sig/Maryam Route Start Time Stop Time Status Last Admin Dose Admin Sodium Chloride 1,000 ml @ 999 mls/hr Q1H1M STAT IV 05/03/17 08:35 05/03/17 09:35 DC 05/03/17 09:00 999 MLS/HR Levofloxacin (Levaquin Tab) 500 mg NOW STAT PO 05/03/17 13:44 05/03/17 13:47 DC 05/03/17 14:33 500 MG Medical Decision CC: Patient presenting with complaint of abdominal pain and hematuria Interpretation of Labs: Pancytopenia (baseline for patient), normal renal function, UA is negative for hematuria, but does appear to be an infection with positive nitrites and large white blood cells, culture pending. Differential Diagnosis: Includes, but not limited to UTI, acute cystitis, pyelonephritis, traumatic catheterization, dehydration, urinary retention, diverticulitis, among others. Medication Reconciliation: I attest that I have personally reviewed the patient' s current medication list. Vital signs review: I reviewed the patient's vital signs and interpret them as follows: T: Afebrile; BP: Normotensive; HR: Within normal limits; RR: Tachypneic; Pulse Ox: Within normal limits on room air. Blood pressure screening: The patient was found to have normal blood pressure on screening and does not require follow-up for repeat blood pressure check. Summary: Patient was evaluated at bedside, history of physical exam performed. Patient is alert and in no acute distress, but does appear somewhat uncomfortable and in pain. He is tender in the suprapubic region of the abdomen only, abdomen is otherwise soft, nontender and nondistended. Orders were placed at bedside for labs, UA and culture, IV fluid for hydration, IV fentanyl for pain, CT abdomen/pelvis to evaluate for intra-abdominal abnormality. Patient discussed with Dr. Zuñiga, who agrees with my assessment and plan. Labs reviewed as above, no significant acute abnormalities. UA consistent with a UTI, no hematuria noted. Nursing staff did notify me that patient had greater than 500 mL of cloudy foul- smelling urine upon straight cath, and he also reported significantly improved pain after his bladder was drained. CT imaging shows bladder wall thickening, in setting of UTI, suspect acute cystitis. CT imaging also concerning for a possible developing pneumonia. Given the presence of a UTI with questionable pneumonia, Levaquin was chosen for antibiotic treatment. Patient reassessed multiple times throughout ED stay, he is much improved on reassessment, states that his pain is completely gone. Given his persistent urinary retention in setting of an active UTI, and patient' s reported difficulties with straight cath at home, will place a Russell catheter at this time for discharge. Patient was instructed to follow closely with his urologist for follow-up, as well as return precautions should his symptoms worsen, he verbalized understanding. Patient was discharged home in stable condition ambulatory. Medication Reconcilliation Current Medication List: was personally reviewed by me Impression Primary Impression: Urinary tract infection Additional Impressions: Urinary retention Hematuria Departure Information Dispostion Home / Self-Care Condition GOOD Prescriptions Levofloxacin (Levaquin) 500 Mg Tab 500 MG PO DAILY for 9 Days, #9 TAB Prov: Maia Woo CRNP 05/03/17 Referrals Blane Marrero MD (PCP) Gary Benoit M.D. Patient Instructions ED Catheter Care Russell, ED UTI Cystitis Male, Leg Bag [facility] [place], [facility] Additional Instructions You have been treated in the Emergency Department for a Urinary Tract Infection (UTI). You should clean around the Russell catheter every 4 hours during the day. Read the patient instructions regarding catheter care. You have been prescribed Levaquin to be taken once a day for the next 9 days. This is an antibiotic. All antibiotics have the potential to cause diarrhea. Stop this medication and contact a medical provider if you were to develop any significant adverse side effects including: wheezing, shortness of breath, passing out, vomiting, or a diffuse rash. Always take antibiotics as directed and COMPLETE the ENTIRE course regardless of the improvement of your symptoms. You should take a probiotic while you're on the antibiotic to help prevent diarrhea. Drink plenty of fluids and stay well hydrated. Call Dr. Benoit's office tomorrow to arrange an appointment for follow-up in the next week. You should discuss the blood in your urine with Dr. Benoit. Return to the emergency department if your symptoms persist despite treatment plan outlined above or if the following symptoms occur: Severe increasing pain, fevers/chills, low back pain, nausea/vomiting, or large amounts of blood in your urine. Problem Qualifiers Primary Impression: Urinary tract infection Urinary tract infection type: acute cystitis Hematuria presence: with hematuria Qualified Codes: N30.01 - Acute cystitis with hematuria Additional Impressions: Hematuria Hematuria type: unspecified type Qualified Codes: R31.9 - Hematuria, unspecified
[2017-05-03 15:32] VITALS: BP 123/66; PULSE 65; O2SAT 95
== END 2017-05-03 15:40 | disposition home or self-care (01) ==
LOC: C.EDB 08:10 → C.EDA 15:40
DX: N30.01 Acute cystitis with hematuria (principal); R33.9 Retention of urine, unspecified; R31.9 Hematuria, unspecified; N40.0 Benign prostatic hyperplasia without lower urinary tract symptoms; J47.9 Bronchiectasis, uncomplicated; Z79.52 Long term (current) use of systemic steroids; J44.9 Chronic obstructive pulmonary disease, unspecified; E78.5 Hyperlipidemia, unspecified; K21.9 Gastro-esophageal reflux disease without esophagitis; J84.10 Pulmonary fibrosis, unspecified; L30.9 Dermatitis, unspecified; I49.3 Ventricular premature depolarization; M06.9 Rheumatoid arthritis, unspecified; I71.2 Thoracic aortic aneurysm, without rupture; Z80.6 Family history of leukemia; Z83.79 Family history of other diseases of the digestive system

== ENCOUNTER → 2017-06-22 | Outpatient (CLI) | payer OTHER ==
[~2017-06-22] MED LIST changes: -ASPCH81X PO; +ASPI81TA28 PO; +ATOR-22 PO; +AVD5 PO; -LPT/20 PO; +MAGIC1 PO; +ONDA8TAB6 PO; +PROC1TAB5 PO; +TAMS0.4C38 PO; +VNTHFA/IN INH; -[UNRECOGNIZED DRUG - REMARK]
[2017-06-22 10:23] VITALS: BP 137/67; PULSE 90; TEMP 36.5; O2SAT 95
--- NOTE | 2017-06-22 11:15 | Radiation Oncology Follow-Up ---
Radiation Oncology Follow-Up Date of Visit Jun 22, 2017. 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 Radiation was completed 05/29/2017. He received 7695.6 cGy. Last Edited By: Mary Preciado on Jun 08, 2017 15:19 History of Present Illness Mr. Pabon has a previous history of a skin lesion involving the left temporal region diagnosed 10 years ago with a post-incisional biopsy did only revealed a plasma cell infiltration. More recently, the patient noted he was having enlarging mass behind his right ear. The patient was seen by Dr. Hernandez from dermatology and [facility] in [place], [place]. Dr. Hernandez ordered an ultrasound he right neck on 01/10/2017 which revealed a 5.6 x 2.6 x 4.6 cm solid mass in the right lateral neck; during examination Dr. Hernandez also noted a pink fleshy color plaque behind the ear. 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 Dr. Hernandez recommended management of the Delgado cell carcinoma with potential follow-up for Mohs resection/surgery of his other skin lesions. The patient underwent a PET/CT scan on 01/24/2017 which revealed an enlarged necrotic right level V lymph nodes suspicious for metastatic disease, additional sites of FDG avidity involving the soft tissue of the left sternohyoid muscle, multiple mediastinal/hilar lymph nodes and portacaval lymph node. Also noted on the PET scan were focal cutaneous FDG uptake in the right external auditory canal and lateral right breast which could potentially correspond to cutaneous lesions. The patient's case was discussed in the multidisciplinary head and neck tumor board clinic at [facility] in [place], [place] on 01/31/2017. The recommendations were for the patient to undergo a biopsy of the lung lesions. The patient underwent a bronchoscopy and endobronchial ultrasound on 02/05/[address] Swift. Multiple biopsies were performed in all the biopsies were negative including 4R, 4L, 11R, 11L. Due to the negative biopsy results, the patient underwent a biopsy of the sternohyoid muscle mass by Dr. Kuo on 02/22 which came back nondiagnostic. The patient's case was discussed again at the multidisciplinary tumor board clinic on 03/07/2017and the consensus was for concurrent chemotherapy and radiation therapy due to the fact the patient potentially has metastatic involvement in the left sternohyoid muscle. The patient has been seen in consultation by Dr. Erich Rodas from medical oncology who did recommend completion of the staging workup including an MRI of the brain and a repeat PET/CT scan. The patient did have an MRI of the brain completed on 03/20/2017 which showed no evidence of distant metastatic disease. We are now seeing the patient in consultation discussed the role of radiation therapy. A PET CT scan worsening FDG avid mass in the right neck with a neoplasm. FDG avid mediastinal lymphadenopathy appears relatively stable to the previous examination aside from decrease in activity in the left hilar lymph node. Due to the enlarging neck mass he was referred to our office to undergo radiation therapy. He received combined radiation and chemotherapy. The radiation was completed . He received 7695.6 cGy. Interim History He has been doing well over the past month. The mass of the right neck has steadily become smaller and size. He denies any associated pain. He has no difficulty with swallowing. He does note alteration of smell and taste. His stated that his taste is starting to improve. She recently made him a milkshake with a coffee flavor. He was able to taste for coffee. The skin steadily improved. While on treatment he did have desquamation. This healed and he had noted problems with the skin following treatment. He had developed a problem with urinary retention. A catheter was placed. This remains in place. He'll be seeing Dr. Melgoza next Sunday for removal of catheter. He has seen Dr. Rodas in follow-up. PET scan has been discussed and is to be scheduled. Allergies Coded Allergies: No Known Allergies (Verified , 06/12/17) Home Medications Scheduled Aspirin (Aspirin Ec), 81 MG PO DAILY Atorvastatin (Lipitor), 20 MG PO DAILY Budesonide/Formoterol Fumarate (Symbicort 160/4.5 Inhaler ), 2 PUFFS INH BID Diphenhy/Alum/Mag/Sucralfa (Magic Swizzle - Diphenhy/Alum/Mag/Sucralfa), 1 TSP PO Q4H Dutasteride (Avodart), 0.5 MG PO DAILY Folic Acid (Folvite), 1 MG PO DAILY Methotrexate (Methotrexate), 3 TABS PO WK Prednisone (Prednisone), 2.5 MG PO QAM Tamsulosin Hcl (Flomax), 0.4 MG PO HS Scheduled PRN Albuterol Hfa (Ventolin Hfa), 2-4 PUFFS INH Q6H PRN for Wheezing Levalbuterol (Levalbuterol HCl), 3 ML NEB Q8 PRN for Wheezing Ondansetron Hcl (Zofran), 8 MG PO Q8 PRN for Nausea Prochlorperazine Maleate (Compazine), 10 MG PO Q6H PRN for Nausea Review of Systems Gastrointestinal: Symptoms: WNL GI Comments: diarrhea is resolved Oral: Symptoms: Scant Saliva/Dry Mouth Respiratory: Symptoms: Dry Cough, SOB With Exertion Urinary: Symptoms: Russell Catheter Comments: reinserted week ago, Dr Melgoza will check after two weeks Skin: Symptoms: No Problems Physical Exam Vital Signs Date Time Temp Pulse Resp B/P (MAP) Pulse Ox O2 Delivery O2 Flow Rate FiO2 06/22/17 10:23 36.5 90 20 137/67 95 Fatigue: None General Appearance: no apparent distress Eyes: normal inspection, EOMI ENT: normal ENT inspection, hearing grossly normal, pharynx normal Neck: supple, + pertinent finding (mass of the right neck now measures 4 x 4 centimeters. This is greatly improved in height. This is not raised approximately 1 cm.) Respiratory/Chest: lungs clear, no respiratory distress, no accessory muscle use Cardiovascular: regular rate, rhythm, no gallop, no murmur Extremities: no pedal edema Neurologic/Psychiatric: no motor/sensory deficits, alert, normal mood/affect Skin: warm/dry Pain Management Pain Location: None Patient Preferred Pain Scale: 0 - 10 Pain Management Plan He did not have a complaint of pain. Laboratory Studies Test 03/26/17 10:38 04/04/17 16:43 04/20/17 13:40 04/20/17 15:05 POC Glucose 131 mg/dl (70-99) Globulin 3.8 gm/dl (2.5-4.0) 3.3 gm/dl (2.5-4.0) Albumin/Globulin Ratio 0.7 (0.9-2) 0.9 (0.9-2) Thyroid Stimulating Hormone (TSH) 9.350 uIu/ml (0.300-4.500) Magnesium Level 2.3 mg/dl (1.8-2.4) Urine Mucus PRESENT (NONE PRSENT) Urine Yeast (Auto) BUDDING (NONE PRSENT) Test 05/03/17 09:05 05/03/17 09:20 06/12/17 13:55 06/12/17 15:00 White Blood Count 2.83 K/uL (4.8-10.8) 4.93 K/uL (4.8-10.8) Red Blood Count 3.76 M/uL (4.7-6.1) 3.89 M/uL (4.7-6.1) Hemoglobin 11.9 g/dL (14.0-18.0) 12.9 g/dL (14.0-18.0) Hematocrit 35.2 % (42-52) 37.5 % (42-52) Mean Corpuscular Volume 93.6 fL (80-100) 96.4 fL (80-100) Mean Corpuscular Hemoglobin 31.6 pg (25-34) 33.2 pg (25-34) Mean Corpuscular Hemoglobin Concent 33.8 g/dl (32-36) 34.4 g/dl (32-36) Platelet Count 132 K/uL (130-400) 100 K/uL (130-400) Mean Platelet Volume 10.5 fL (7.4-10.4) 10.4 fL (7.4-10.4) Neutrophils (%) (Auto) 64.3 % 63.7 % Lymphocytes (%) (Auto) 21.6 % 17.2 % Monocytes (%) (Auto) 10.2 % 13.4 % Eosinophils (%) (Auto) 3.5 % 5.3 % Basophils (%) (Auto) 0.4 % 0.4 % Neutrophils # (Auto) 1.82 K/uL (1.4-6.5) 3.14 K/uL (1.4-6.5) Lymphocytes # (Auto) 0.61 K/uL (1.2-3.4) 0.85 K/uL (1.2-3.4) Monocytes # (Auto) 0.29 K/uL (0.11-0.59) 0.66 K/uL (0.11-0.59) Eosinophils # (Auto) 0.10 K/uL (0-0.5) 0.26 K/uL (0-0.5) Basophils # (Auto) 0.01 K/uL (0-0.2) 0.02 K/uL (0-0.2) RDW Standard Deviation 57.9 fL (36.4-46.3) 61.5 fL (36.4-46.3) RDW Coefficient of Variation 17.8 % (11.5-14.5) 17.4 % (11.5-14.5) Immature Granulocyte % (Auto) 0.0 % 0.0 % Immature Granulocyte # (Auto) 0.00 K/uL (0.00-0.02) 0.00 K/uL (0.00-0.02) Prothrombin Time 10.5 SECONDS (9.0-12.0) Prothrombin Time INR 1.0 (0.9-1.1) PTT 25.4 SECONDS (21.0-31.0) Partial Thromboplastin Ratio 1.0 Sodium Level 141 mmol/L (136-145) 138 mmol/L (136-145) Potassium Level 4.0 mmol/L (3.5-5.1) 3.5 mmol/L (3.5-5.1) Chloride Level 109 mmol/L (98-107) 106 mmol/L (98-107) Carbon Dioxide Level 25 mmol/L (21-32) 23 mmol/L (21-32) Anion Gap 7.0 mmol/L (3-11) 9.0 mmol/L (3-11) Blood Urea Nitrogen 20 mg/dl (7-18) 16 mg/dl (7-18) Creatinine 0.93 mg/dl (0.60-1.40) 0.99 mg/dl (0.60-1.40) Est Creatinine Clear Calc Drug Dose 70.4 ml/min 64.7 ml/min Estimated GFR () 87.7 81.3 Estimated GFR (Non- 75.7 70.1 BUN/Creatinine Ratio 21.1 (10-20) 15.9 (10-20) Random Glucose 108 mg/dl (70-99) 132 mg/dl (70-99) Calcium Level 8.8 mg/dl (8.5-10.1) 8.6 mg/dl (8.5-10.1) Total Bilirubin 0.9 mg/dl (0.2-1) 0.9 mg/dl (0.2-1) Direct Bilirubin 0.2 mg/dl (0-0.2) 0.3 mg/dl (0-0.2) Aspartate Amino Transferase (AST) 25 U/L (15-37) 20 U/L (15-37) Alanine Aminotransferase (ALT) 34 U/L (12-78) 20 U/L (12-78) Alkaline Phosphatase 70 U/L (45-117) 99 U/L (45-117) Troponin I < 0.015 ng/ml (0-0.045) Total Protein 6.1 gm/dl (6.4-8.2) 6.9 gm/dl (6.4-8.2) Albumin 2.9 gm/dl (3.4-5.0) 2.9 gm/dl (3.4-5.0) Lipase 86 U/L (73-393) 83 U/L (73-393) Urine Color YELLOW Urine Appearance CLEAR (CLEAR) Urine pH 7.0 (4.5-7.5) Urine Specific Sharon 1.013 (1.000-1.030) Urine Protein NEG (NEG) Urine Glucose (UA) NEG (NEG) Urine Ketones NEG (NEG) Urine Occult Blood NEG (NEG) Urine Nitrite POS (NEG) Urine Bilirubin NEG (NEG) Urine Urobilinogen NEG (NEG) Urine Leukocyte Esterase TRACE (NEG) Urine WBC (Auto) 10-30 /hpf (0-5) Urine RBC (Auto) 0-4 /hpf (0-4) Urine Hyaline Casts (Auto) 1-5 /lpf (0-5) Urine Epithelial Cells (Auto) 10-20 /lpf (0-5) Urine Bacteria (Auto) 1+ (NEG) Lab Scanned Report Laboratory Report/Additional Test 06/12/17 15:13 06/12/17 15:15 06/12/17 15:42 06/12/17 15:48 POC Troponin I < 0.030 ng/ml (0-0.045) POC Lactic Acid Venous 1.86 mmol/L (0.90-1.70) Urine Color DK YELLOW Urine Appearance CLOUDY (CLEAR) Urine pH 5.5 (4.5-7.5) Urine Specific [place] 1.017 (1.000-1.030) Urine Protein NEG (NEG) Urine Glucose (UA) NEG (NEG) Urine Ketones NEG (NEG) Urine Occult Blood NEG (NEG) Urine Nitrite NEG (NEG) Urine Bilirubin NEG (NEG) Urine Urobilinogen NEG (NEG) Urine Leukocyte Esterase MODERATE (NEG) Urine WBC (Auto) 10-30 /hpf (0-5) Urine RBC (Auto) 0-4 /hpf (0-4) Urine Hyaline Casts (Auto) 1-5 /lpf (0-5) Urine Epithelial Cells (Auto) 10-20 /lpf (0-5) Urine Bacteria (Auto) 2+ (NEG) Influenza Type A Antigen Neg for Influ A (NEG) Influenza Type B Antigen Neg for Influ B (NEG) Assessment & Plan Plan: Patient is also seen today by Dr. Duran. He was chewing snuff. We discussed cessation of tobacco. We discussed the altered smell and taste. That should steadily improve with time. He has seen Dr. Rodas and a PET scan is going to be scheduled. He'll be seeing Dr. Melgoza in regards to the urinary catheter. We asked him to return to our office in 6 months. He may call if he has any questions or concerns in the interim. Assessment & Plan (Attending) ADDENDUM: I agree with note created by Mary Preciado PA-C. I reviewed the patient's chart and information with her. I have examined and evaluated the patient. I reviewed relevant clinical information and answered the patient's and /or family's questions. 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 I spent 15 minutes reviewing information in completing this note. Total Time (Attending) In Follow-Up I spent 15 minutes examining and counseling the patient. F[employer]IGHT LOAD[employer] SUPERVISOR Copy To Blane Marrero MD; Erich Rodas MD; Chris Kennedy M.D.
== END | disposition home or self-care (01) ==
LOC: C.ONC 10:12
PROVIDERS: ATTEND Physician Assistant Medical
DX: Z08 Encounter for follow-up examination after completed treatment for malignant neoplasm (principal); Z92.3 Personal history of irradiation; Z85.89 Personal history of malignant neoplasm of other organs and systems

== ENCOUNTER → 2017-08-09 | Outpatient (CLI) | payer OTHER ==
[~2017-08-09] MED LIST changes: +FLV1 PO; -FOLI1TAB7 PO; +FOLI1TAB8 PO; +GADAVIST IV PRN; +MULTTAB PO; +ONDA-170 PO; -ONDA8TAB6 PO; +OXYC-57 PO; +PANT1TAB4 PO; +PROC10TA PO; -PROC1TAB5 PO
--- NOTE | 2017-08-09 18:23 | DIAGNOSTIC IMAGING REPORT ---
PELVIC COMBO CLINICAL HISTORY: 81 years-old Male presenting with POP CELL CARCINOMA, right hip pain and right leg pain, concern for metastatic disease. TECHNIQUE: Multisequence, multiplanar MR imaging of the pelvis was performed before and after the administration of intravenous contrast. IV contrast: 8.7 mL of Gadavist. COMPARISON: CT from 05/03/2017. FINDINGS: Localizer images: Russell catheter. Bilateral hydroceles. Bowel: Diverticulosis. No bowel obstruction. Peritoneum: No free fluid. Bladder: Allowing for underdistention, suspected circumferential bladder wall thickening. Pelvic organs: Russell catheter positioned in the prostate. Bilateral hydroceles. Lymph nodes: No lymphadenopathy in the pelvis. Abdominal wall: Fat-containing right inguinal hernia. Musculoskeletal: Multiple T1 hypointense, T2 hyperintense, enhancing lesions in the left femur, pelvis, and lower lumbar spine consistent with metastatic disease. These lesions were not visible on prior CT scan. Several index lesions are measured and reported below: 1) L5 lesion measures 14 mm (series 4 image 14) 2) right sacral lesion measures 4.2 cm (series 4 image 23) 3) right iliac lesion subjacent to the right sacroiliac joint measures 3.5 cm (series 4 image 23) 4) left iliac lesion superior to the acetabulum measures 3 cm (series 4 image 13) 5) left femoral head lesion measures 1.6 cm (series 4 image 10) Possible minimal extracortical extension into the adjacent soft tissues by a large lesion in the right iliac crest is suggested (series 5 image 11). The numerous lesions are marked on the images. The right femoral head and neck are spared although the right acetabulum is affected. No gross evidence of a pathologic fracture. IMPRESSION: 1. Multifocal osseous lesions consistent with metastatic disease. This appears to spare the right femoral head and neck, however, the right acetabulum is affected. This may account for the patient's symptomatology. No gross evidence of a pathologic fracture, although may be better evaluated with CT. 2. Russell catheter malpositioned in the prostate. Repositioning recommended. The report will be called/faxed according to standard departmental protocol. Electronically signed by: Ricardo Osorio M.D. 08/09/2017 6:21 PM Dictated Date/Time: 08/09/2017 6:11 PM
== END | disposition home or self-care (01) ==
LOC: C.MRI 16:29
PROVIDERS: ATTEND Internal Medicine Hematology & Oncology
DX: C4A.9 Merkel cell carcinoma, unspecified (principal); R33.9 Retention of urine, unspecified

== ENCOUNTER 2017-09-07 14:20 | Inpatient (IN) | payer OTHER ==
[~2017-09-07] VITALS: Ht 175.3 cm; Wt 81.6 kg
[~2017-09-07 14:20] MED LIST changes: -ASPI81TA28 PO; -ATOR-22 PO; -FLV1 PO; -GADAVIST IV PRN; -MAGIC1 PO; -METH2.5T PO; -MULTTAB PO; -ONDA-170 PO; -OXYC-57 PO; -PANT1TAB4 PO; -PRED-301 PO; -PROC10TA PO; -SYMIN160 INH; -VNTHFA/IN INH; -XPNINS NEB
[2017-09-07 14:54] LABS: HEMATOCRIT 35.6 % (42-52); HEMOGLOBIN 12.2 g/dL (14.0-18.0); MEAN CELL VOLUME 94.4 fL (80-100); MEAN CORPUSCULAR HEMOGLOBIN 32.4 pg (25-34); MEAN CORPUSCULAR HGB CONC 34.3 g/dl (32-36); RED CELL DISTRIBUTION WIDTH CV 13.8 % (11.5-14.5); RED CELL DISTRIBUTION WIDTH SD 46.8 fL (36.4-46.3); WHITE BLOOD COUNT 7.34 K/uL (4.8-10.8)
[2017-09-07 15:00] LABS: PTT PATIENT 23.1 SECONDS (21.0-31.0)
[2017-09-07] MEDS ORDERED: MAGIC1 PO (15:04)
[2017-09-07] MEDS ORDERED: ATOR-22 PO (15:04)
[2017-09-07] MEDS ORDERED: VNTHFA/IN INH (15:04)
[2017-09-07] MEDS ORDERED: ASPI81TA28 PO (15:04)
[2017-09-07] MEDS ORDERED: PRED-301 PO (15:04)
[2017-09-07] MEDS ORDERED: PROC1TAB5 PO (15:04)
[2017-09-07] MEDS ORDERED: METH2.5T PO (15:04)
[2017-09-07] MEDS ORDERED: ONDA8TAB6 PO (15:04)
[2017-09-07] MEDS ORDERED: XPNINS NEB (15:04)
[2017-09-07] MEDS ORDERED: SYMIN160 INH (15:04)
[2017-09-07 15:11] LABS: ALBUMIN 2.5 gm/dl (3.4-5.0); CALCIUM 8.8 mg/dl (8.5-10.1); POTASSIUM 4.3 mmol/L (3.5-5.1)
[2017-09-07 15:24] LABS: BASO % 0.4 %; BASO ABS # 0.03 K/uL (0-0.2); EOS % 2.9 %; EOS ABS # 0.21 K/uL (0-0.5); IG# 0.11 K/uL (0.00-0.02); LYMPH % 13.2 %; LYMPH ABS # 0.97 K/uL (1.2-3.4); MEAN PLATELET VOLUME 11.4 fL (7.4-10.4); MONO ABS # 0.81 K/uL (0.11-0.59); NEUT ABS # 5.21 K/uL (1.4-6.5); PLATELET COUNT 88 K/uL (130-400)
[2017-09-07] MEDS ORDERED: FLV1 PO (15:58)
[2017-09-07] MEDS ORDERED: ACETAMINOPHEN 325 MG TAB PO PRN (17:45)
[2017-09-07] MEDS ORDERED: ONDANSETRON INJ 2 MG/ML 2 ML VIAL IV PRN (17:45)
[2017-09-07 18:38] LABS: HEMATOCRIT 34.3 % (42-52); HEMOGLOBIN 11.5 g/dL (14.0-18.0)
[2017-09-07] MEDS ORDERED: ALBUTEROL HFA 8 GM INHALER INH PRN (19:15)
[2017-09-07] MEDS ORDERED: LEVALBUTEROL 0.63MG/3 ML NEB INH PRN (19:15)
--- NOTE | 2017-09-07 19:26 | History and Physical ---
History & Physical Date & Time of Service: Sep 07, 2017 at 19:17 Chief Complaint: Gi Assessment Primary Care Physician: Blane Marrero MD History of Present Illness Source: patient, family (at bedside ), clinic records, hospital records This is an 81yo M with Kamron Cell Carcinoma with metastasis, bronchiectasis/ COPD, RA, DM II (diet controlled), BPH, HLD and tobacco use disorder who presents with bloody diarrhea that began this afternoon. States that his first two episodes were black with clots and the following 3 episodes were diarrhea with bright red blood. Associated with intermittent lower abdominal pain; denies nausea or vomiting. Presented in May 2017 with similar symptoms and was evaluated with an EGD and colonoscopy without definitive source. Patient was diagnosed with ASSISTED last year and underwent chemo and radiation. Follows with Dr. Rodas for heme/onc. In July, underwent MRI and PET scan that showed diffuse mets to lung, bone and brain. Patient decided at this point to stop chemo therapy and just try supportive measures. Continues to take weekly methotrexate for rheumatoid arthritis and received steroid injections in shoulder and hip yesterday. Has an enlarged prostate that causes incontinence and has a sandhu in place. Takes a baby aspirin daily and endorses taking aleve the past few days but not regularly. Denies fever, chills, lightheadedness, headache, visual changes, palpitations, CP, SOB, nausea, vomiting, LE swelling. Patient is not interested in invasive measures at this point, including a colonoscopy. Is currently a DNR but has agreed to speak with palliative care in an effort to better outline goals of care. Past Medical/Surgical History Medical Problems: (1) BPH (benign prostatic hypertrophy) Status: Chronic (2) Bronchiectasis Status: Chronic (3) Chronic steroid use Status: Chronic (4) COPD (chronic obstructive pulmonary disease) Status: Chronic (5) Dyslipidemia Status: Chronic (6) Eczema Status: Chronic (7) GERD (gastroesophageal reflux disease) Status: Chronic (8) Pulmonary fibrosis Status: Chronic (9) PVC's (premature ventricular contractions) Status: Chronic (10) Rheumatoid arthritis Status: Chronic (11) Thoracic aortic aneurysm Status: Chronic Surgical Problems: (1) Status post appendectomy Status: Chronic Family History Cirrhosis of liver BROTHER Leukemia MOTHER Social History Smoking Status: Never Smoker Smokeless Tobacco Use: Yes (snuff x 60 years ) Marital Status: Housing status: lives with significant other Occupational Status: retired Immunizations History of Influenza Vaccine: Yes History of Tetanus Vaccine?: Yes Multi-Drug Resistant Organisms History of MDRO: No Allergies Coded Allergies: No Known Allergies (Verified , 06/12/17) Home Medications Scheduled Aspirin (Aspirin Ec), 81 MG PO DAILY Atorvastatin (Lipitor), 20 MG PO DAILY Budesonide/Formoterol Fumarate (Symbicort 160/4.5 Inhaler ), 2 PUFFS INH BID Dutasteride (Avodart), 0.5 MG PO DAILY Folic Acid (Folic Acid), 1 MG PO DAILY Methotrexate (Methotrexate), 3 TABS PO WK Prednisone (Prednisone), 2.5 MG PO QAM Tamsulosin Hcl (Flomax), 0.4 MG PO HS Scheduled PRN Albuterol Hfa (Ventolin Hfa), 2-4 PUFFS INH Q6H PRN for Wheezing Levalbuterol (Levalbuterol HCl), 3 ML NEB Q8 PRN for Wheezing Review of Systems Ten systems reviewed and negative except as noted in the HPI. Physical Exam Vital Signs Date Time Temp Pulse Resp B/P (MAP) Pulse Ox O2 Delivery O2 Flow Rate FiO2 09/07/17 18:30 85 09/07/17 17:37 96 18 121/73 94 Room Air 09/07/17 16:15 101 18 129/79 97 Room Air 09/07/17 14:51 96 Room Air 09/07/17 14:31 36.7 106 16 149/86 98 Room Air 09/07/17 14:29 108 General Appearance: WD/WN, no apparent distress, + pertinent finding ( Chronically ill appearing. ) Head: normocephalic, atraumatic Eyes: normal inspection, PERRL, sclerae normal ENT: normal ENT inspection, hearing grossly normal, pharynx normal (dry mucous membranes ) Neck: supple, thyroid normal Respiratory/Chest: chest non-tender, lungs clear, no respiratory distress, no accessory muscle use Cardiovascular: regular rate, rhythm, no murmur, normal peripheral pulses Abdomen/GI: non tender, soft, no organomegaly Genitourinary - Male: + pertinent finding (sandhu in place) Back: normal inspection Extremities/Musculoskelatal: normal inspection, no calf tenderness, no pedal edema Neurologic/Psych: no motor/sensory deficits, alert, normal mood/affect, oriented x 3 Skin: + pallor Diagnostics Laboratory Results Results Past 24 Hours Test 09/07/17 13:45 09/07/17 16:15 09/07/17 18:14 Range/Units White Blood Count 7.34 4.8-10.8 K/uL Red Blood Count 3.77 4.7-6.1 M/uL Hemoglobin 12.2 11.5 14.0-18.0 g/dL Hematocrit 35.6 34.3 42-52 % Mean Corpuscular Volume 94.4 80-100 fL Mean Corpuscular Hemoglobin 32.4 25-34 pg Mean Corpuscular Hemoglobin Concent 34.3 32-36 g/dl Platelet Count 88 130-400 K/uL Mean Platelet Volume 11.4 7.4-10.4 fL Neutrophils (%) (Auto) 71.0 % Lymphocytes (%) (Auto) 13.2 % Monocytes (%) (Auto) 11.0 % Eosinophils (%) (Auto) 2.9 % Basophils (%) (Auto) 0.4 % Neutrophils # (Auto) 5.21 1.4-6.5 K/uL Lymphocytes # (Auto) 0.97 1.2-3.4 K/uL Monocytes # (Auto) 0.81 0.11-0.59 K/uL Eosinophils # (Auto) 0.21 0-0.5 K/uL Basophils # (Auto) 0.03 0-0.2 K/uL RDW Standard Deviation 46.8 36.4-46.3 fL RDW Coefficient of Variation 13.8 11.5-14.5 % Immature Granulocyte % (Auto) 1.5 % Immature Granulocyte # (Auto) 0.11 0.00-0.02 K/uL Platelet Estimate DECREASED Prothrombin Time 10.5 9.0-12.0 SECONDS Prothromb Time International Ratio 1.0 0.9-1.1 Activated Partial Thromboplast Time 23.1 21.0-31.0 SECONDS Partial Thromboplastin Ratio 0.9 Sodium Level 138 136-145 mmol/L Potassium Level 4.3 3.5-5.1 mmol/L Chloride Level 105 98-107 mmol/L Carbon Dioxide Level 24 21-32 mmol/L Anion Gap 9.0 3-11 mmol/L Blood Urea Nitrogen 17 7-18 mg/dl Creatinine 1.00 0.60-1.40 mg/dl Est Creatinine Clear Calc Drug Dose 61.8 ml/min Estimated GFR () 80.3 Estimated GFR (Non- 69.3 BUN/Creatinine Ratio 17.0 10-20 Random Glucose 125 70-99 mg/dl Calcium Level 8.8 8.5-10.1 mg/dl Total Bilirubin 0.5 0.2-1 mg/dl Direct Bilirubin 0.1 0-0.2 mg/dl Aspartate Amino Transf (AST/SGOT) 40 15-37 U/L Alanine Aminotransferase (ALT/SGPT) 20 12-78 U/L Alkaline Phosphatase 107 45-117 U/L Total Protein 6.0 6.4-8.2 gm/dl Albumin 2.5 3.4-5.0 gm/dl Lipase 126 73-393 U/L Urine Color YELLOW Urine Appearance CLOUDY CLEAR Urine pH 6.0 4.5-7.5 Urine Specific Cora 1.012 1.000-1.030 Urine Protein NEG NEG Urine Glucose (UA) NEG NEG Urine Ketones NEG NEG Urine Occult Blood 3+ NEG Urine Nitrite NEG NEG Urine Bilirubin NEG NEG Urine Urobilinogen NEG NEG Urine Leukocyte Esterase MODERATE NEG Urine WBC (Auto) >30 0-5 /hpf Urine RBC (Auto) 10-30 0-4 /hpf Urine Hyaline Casts (Auto) 1-5 0-5 /lpf Urine Epithelial Cells (Auto) 10-20 0-5 /lpf Urine Bacteria (Auto) 1+ NEG Urine Crystals CALCIUM OXALATE NONE PRSENT Urine Yeast (Auto) NONE PRSENT EKG Sinus rhythm with occasional Premature ventricular complexes and Premature atrial complexes Left axis deviation Left ventricular hypertrophy with QRS widening and repolarization abnormality Non-specific intra-ventricular conduction delay No change from prior EKG Impression Assessment and Plan This is an 81yo M with Kamron Cell Carcinoma with metastasis, bronchiectasis/ COPD, RA, DM II (diet controlled), BPH, HLD and tobacco use disorder who presents with bloody diarrhea that began this afternoon. Lower GI bleed: -4-5 episodes of Melena, hematochezia today -VS stable, Hgb at 12 -Trend H&H Q6H, transfuse if hgb <8 -Protonix 40mg inj BID -GI consult, although not interested in scope -Hold aspirin, prednisone RA: -Cont methotrexate, folic acid -Hold prednisone -Tramadol 50mg Q4 PRN [place] Cell Carcinoma: -Widespread mets -S/p chemo and radiation -Decided not to pursue another round of chemo -Palliative consult to discuss goals of care -Tramadol for pain PRN Bronchiectasis/COPD: -Stable -Cont symbicort, xopenex nebs, albuterol PRN DM II: -Diet controlled -A1c of 5.6 in Jun 2017 -Diabetic diet BPH: -Sandhu -Cont flomax, avodart DVT Ppx: SCDs Code status: DNR PCP: Elida Dispo[facility] Discharge planning ordered. Patient seen in collaboration with Dr. Villatoro. Please see addendum. ADDENDUM: This is an 81 year old male with [place] Cell Carcinoma with metastasis to bones. Has completed chemo/radiation course. Receives steroid injections at site of mets, including R hip. Presented with lower GI bleed - bright red blood per rectum for the past day x3 episodes. Plan: consult palliative care - after discussion with patient and family - they are okay with palliative consult and home with home hospice. for now, he does not want colonoscopy/EGD performed - will add Protonix BID stop prednisone, stop NSAIDs. Add Tramadol for pain - may benefit from Fentanyl patch. Level of Care Med/Surg Resuscitation Status DO NOT RESUSCITATE VTE Prophylaxis VTE Risk Assessment Done? Y/N: Yes Risk Level: Moderate Given or contraindicated: SCD's
--- NOTE | 2017-09-07 19:45 | DIAGNOSTIC IMAGING REPORT ---
ABD/PELVIS NO IV OR ORAL CONT CLINICAL HISTORY: 81 years-old Male presenting with gi bleed lower pain. TECHNIQUE: Multidetector CT of the abdomen and pelvis was performed without the use of intravenous contrast. IV contrast: None. A dose lowering technique was used consistent with the principles of ALARA (as low as reasonably achievable). COMPARISON: 05/03/2017 and PET/CT from 03/21/2017. CT DOSE (mGy.cm): The estimated cumulative dose is 416.02 mGy.cm. 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 Lung bases: Peripheral reticulation at the lung bases similar to prior exam. Mild bronchial wall thickening. Minimal nodular opacity and bronchiectasis in the right middle lobe. Solid 5 mm pulmonary nodule in the medial basal segment of left lower lobe (series 3 image 45). A larger solid 17 mm nodule in the medial basal segment of the left lower lobe noted slightly more inferiorly (series 3 image 65). Multiple additional solid pulmonary nodules noted at the lung bases. Multichamber enlargement of the heart. No pericardial or pleural effusion. Liver: Mildly macronodular contour of the liver. Normal liver density. Biliary: No intrahepatic or extrahepatic biliary ductal dilatation. Normal gallbladder. Pancreas: Moderate parenchymal atrophy. Spleen: Normal noncontrast appearance. Adrenal glands: Normal noncontrast appearance. Kidneys and ureters: Normal noncontrast appearance. No nephrolithiasis. No hydronephrosis. Normal ureters. Bladder: Decompressed with Russell catheter. Pelvic organs: The Russell catheter balloon is positioned within the prostate. Bowel: Diverticulosis of the sigmoid colon with minimal pericolonic fat infiltration. Extensive diverticulosis of the more proximal colon. The appendix is normal. No bowel obstruction. Peritoneal cavity: No free fluid or intraperitoneal gas. Lymph nodes: No gross lymphadenopathy allowing for noncontrast technique. Vasculature: Atherosclerosis of the normal caliber abdominal aorta. Abdominal wall: Normal. Musculoskeletal: Degenerative changes of the spine. IMPRESSION: 1. Evaluation for gastrointestinal hemorrhage is limited in the absence of intravenous contrast. Within this limitation, no site of disease is identified, however, the extensive diverticulosis is likely the culprit of the hemorrhage. Diverticulosis without overt evidence of acute diverticulitis. 2. The Russell catheter balloon is positioned within the prostate. Repositioning recommended. Nonetheless, the bladder is appropriately decompressed. 3. Mildly macronodular contour of the liver. This could suggest underlying fibrosis/cirrhosis. 4. Multiple solid pulmonary nodules at the left lung base, which are new since PET/CT scan from 03/21/2017. Given the patient's history of cancer, these are concerning for metastatic disease. The report will be called/faxed according to standard departmental protocol. Electronically signed by: Ricardo Osorio M.D. 09/07/2017 7:44 PM Dictated Date/Time: 09/07/2017 7:29 PM
[2017-09-07] MEDS ORDERED: TRAMADOL HCL 50 MG TAB PO PRN (20:00)
[2017-09-07 20:08] VITALS: BP 109/79; PULSE 103; TEMP 36.6; O2SAT 96
[2017-09-07 20:09] VITALS: BP 109/79; PULSE 103; TEMP 36.6; O2SAT 96; Ht 175.3 cm; Wt 81.6 kg
--- NOTE | 2017-09-07 20:16 | EMERGENCY ROOM VISIT NOTE ---
History Report prepared by Jojo: Alvino Childs Under the Supervision of: Dr. Grady Castaneda M.D. First contact with patient: 14:22 Chief Complaint: RECTAL BLEEDING Stated Complaint: GI ASSESSMENT Nursing Triage Summary: PT HERE WITH BRIGHT RED RECTAL BLEEDING THAT BEGAN A FEW HOURS AGO. PT DENIES ANY ABD PAINS. PT STATES WAS GETTING OFF OF TOILET AND IT WAS JUST DRIPPING BRIGHT RED OUT OF RECTUM. PT HAS HX OF GI BLEED IN MAY 2016 WITH NO KNOWN ORIGIN. PT TAKES ASPIRIN. PT HAS HX OF CANCER IN NECK AREA, HX OF CHEMO TREATMENTS. History of Present Illness The patient is a 81 year old male who presents to the Emergency Room with complaints of a persistent GI bleed that began three hours ago. The patient has a past medical history of a GI bleed similar to this episode that occurred in May of 2016 without a known origin. He needed a transfusion at that time. He also has a past medical history of an enlarged prostate making him incontinent. A Russell catheter is in place secondary to this. A couple of hours ago, the patient was having a bowel movement. When he stood up to get off of the toilet, bright red blood was dripping from his rectum. He feels intermittently nauseated. Pt denies LOC, headache, fevers, chills, diaphoresis, visual changes, neck pain, chest pain, breathing difficulties, vomiting, abdominal pain, back pain, melena, urinary symptoms, numbness, weakness, lymphadenopathy, rash, or other complaints. He takes Aspirin daily, but denies any other blood thinners. Source of History: patient Onset: 3 hours ago Position: other (Rectum) Symptom Intensity: moderate Quality: other (Bleeding) Timing: constant Associated Symptoms: + nausea Review of Systems See HPI for pertinent positives and negatives. A total of ten systems were reviewed and were otherwise negative. Past Medical & Surgical Medical Problems: (1) BPH (benign prostatic hypertrophy) (2) Bronchiectasis (3) Chronic steroid use (4) COPD (chronic obstructive pulmonary disease) (5) Dyslipidemia (6) Eczema (7) GERD (gastroesophageal reflux disease) (8) Pulmonary fibrosis (9) PVC's (premature ventricular contractions) (10) Rheumatoid arthritis (11) Thoracic aortic aneurysm Surgical Problems: (1) Status post appendectomy Family History Cirrhosis of liver BROTHER Leukemia MOTHER Social History Smoking Status: Never Smoker Marital Status: Housing Status: lives with family Occupation Status: retired Current/Historical Medications Scheduled Aspirin (Aspirin Ec), 81 MG PO DAILY Atorvastatin (Lipitor), 20 MG PO DAILY Budesonide/Formoterol Fumarate (Symbicort 160/4.5 Inhaler ), 2 PUFFS INH BID Dutasteride (Avodart), 0.5 MG PO DAILY Folic Acid (Folic Acid), 1 MG PO DAILY Methotrexate (Methotrexate), 3 TABS PO WK Prednisone (Prednisone), 2.5 MG PO QAM Tamsulosin Hcl (Flomax), 0.4 MG PO HS Scheduled PRN Albuterol Hfa (Ventolin Hfa), 2-4 PUFFS INH Q6H PRN for Wheezing Levalbuterol (Levalbuterol HCl), 3 ML NEB Q8 PRN for Wheezing Allergies Coded Allergies: No Known Allergies (Verified , 06/12/17) Physical Exam Vital Signs Date Time Temp Pulse Resp B/P (MAP) Pulse Ox O2 Delivery O2 Flow Rate FiO2 09/07/17 16:15 101 18 129/79 97 Room Air 09/07/17 14:51 96 Room Air 09/07/17 14:31 36.7 106 16 149/86 98 Room Air 09/07/17 14:29 108 Physical Exam GENERAL: Awake, alert, tired-appearing, in no distress HENT: Normocephalic, atraumatic. Oropharynx unremarkable. EYES: Normal conjunctiva. Sclera non-icteric. NECK: Supple. No nuchal rigidity. FROM. No JVD. RESPIRATORY: Clear to auscultation. CARDIAC: Regular rate, normal rhythm. Extremities warm and well perfused. Pulses equal. ABDOMEN: Soft, non-distended. No tenderness to palpation. No rebound or guarding. No masses. RECTAL: Gross bloody stool. No signs of hemorrhoids or fissures. MUSCULOSKELETAL: Chest examination reveals no tenderness. The back is symmetrical on inspection without obvious abnormality. There is no CVA tenderness to palpation. No joint edema. LOWER EXTREMITIES: Calves are equal size bilaterally and non-tender. No edema. No discoloration. NEURO: Normal sensorium. No sensory or motor deficits noted. SKIN: No rash or jaundice noted. Medical Decision & Procedures Laboratory Results 09/07/17 13:45 Red Blood Count 3.77, Mean Corpuscular Volume 94.4, Mean Corpuscular Hemoglobin 32.4, Mean Corpuscular Hemoglobin Concent 34.3, Mean Platelet Volume 11.4, Neutrophils (%) (Auto) 71.0, Lymphocytes (%) (Auto) 13.2, Monocytes (%) (Auto) 11.0, Eosinophils (%) (Auto) 2.9, Basophils (%) (Auto) 0.4, Neutrophils # (Auto ) 5.21, Lymphocytes # (Auto) 0.97, Monocytes # (Auto) 0.81, Eosinophils # (Auto ) 0.21, Basophils # (Auto) 0.03 09/07/17 13:45 Test 09/07/17 13:45 09/07/17 16:15 White Blood Count 7.34 K/uL (4.8-10.8) Red Blood Count 3.77 M/uL (4.7-6.1) Hemoglobin 12.2 g/dL (14.0-18.0) Hematocrit 35.6 % (42-52) Mean Corpuscular Volume 94.4 fL (80-100) Mean Corpuscular Hemoglobin 32.4 pg (25-34) Mean Corpuscular Hemoglobin Concent 34.3 g/dl (32-36) Platelet Count 88 K/uL (130-400) Mean Platelet Volume 11.4 fL (7.4-10.4) Neutrophils (%) (Auto) 71.0 % Lymphocytes (%) (Auto) 13.2 % Monocytes (%) (Auto) 11.0 % Eosinophils (%) (Auto) 2.9 % Basophils (%) (Auto) 0.4 % Neutrophils # (Auto) 5.21 K/uL (1.4-6.5) Lymphocytes # (Auto) 0.97 K/uL (1.2-3.4) Monocytes # (Auto) 0.81 K/uL (0.11-0.59) Eosinophils # (Auto) 0.21 K/uL (0-0.5) Basophils # (Auto) 0.03 K/uL (0-0.2) RDW Standard Deviation 46.8 fL (36.4-46.3) RDW Coefficient of Variation 13.8 % (11.5-14.5) Immature Granulocyte % (Auto) 1.5 % Immature Granulocyte # (Auto) 0.11 K/uL (0.00-0.02) Platelet Estimate DECREASED Prothrombin Time 10.5 SECONDS (9.0-12.0) Prothromb Time International Ratio 1.0 (0.9-1.1) Activated Partial Thromboplast Time 23.1 SECONDS (21.0-31.0) Partial Thromboplastin Ratio 0.9 Anion Gap 9.0 mmol/L (3-11) Est Creatinine Clear Calc Drug Dose 61.8 ml/min Estimated GFR () 80.3 Estimated GFR (Non- 69.3 BUN/Creatinine Ratio 17.0 (10-20) Calcium Level 8.8 mg/dl (8.5-10.1) Total Bilirubin 0.5 mg/dl (0.2-1) Direct Bilirubin 0.1 mg/dl (0-0.2) Aspartate Amino Transf (AST/SGOT) 40 U/L (15-37) Alanine Aminotransferase (ALT/SGPT) 20 U/L (12-78) Alkaline Phosphatase 107 U/L (45-117) Total Protein 6.0 gm/dl (6.4-8.2) Albumin 2.5 gm/dl (3.4-5.0) Lipase 126 U/L (73-393) Urine Color YELLOW Urine Appearance CLOUDY (CLEAR) Urine pH 6.0 (4.5-7.5) Urine Specific [place] 1.012 (1.000-1.030) Urine Protein NEG (NEG) Urine Glucose (UA) NEG (NEG) Urine Ketones NEG (NEG) Urine Occult Blood 3+ (NEG) Urine Nitrite NEG (NEG) Urine Bilirubin NEG (NEG) Urine Urobilinogen NEG (NEG) Urine Leukocyte Esterase MODERATE (NEG) Urine WBC (Auto) >30 /hpf (0-5) Urine RBC (Auto) 10-30 /hpf (0-4) Urine Hyaline Casts (Auto) 1-5 /lpf (0-5) Urine Epithelial Cells (Auto) 10-20 /lpf (0-5) Urine Bacteria (Auto) 1+ (NEG) Urine Crystals CALCIUM OXALATE (NONE Urine Yeast (Auto) (NONE PRSENT) Laboratory results reviewed by me ECG Indication: other (Bleeding) Rate (beats per minute): 83 Rhythm: sinus rhythm Findings: PAC, PVC, no acute ischemic change, left axis deviation, other (LVH) Change: Patient's electrocardiogram was interpreted by me. ED Course 1422: The patient was evaluated in room B7. A complete history and physical exam was performed. 1634: Upon reexamination, the patient was resting. I discussed the test results and treatment plan with him. I discussed the patient's case with [facility] The patient will be evaluated for further management. Medical Decision Prior records/ancillary studies reviewed. Triage Nursing notes reviewed and agree them. Additional history obtained from the family. The patient's history was concerning for possible gastrointestinal bleeding. Differential diagnosis: Etiologies such as diverticulosis, AVM, coagulopathy, colitis, inflammatory bowel disease, malignancy,Peggy-Aviles tear, esophagitis, peptic ulcer disease , variceal bleed, gastritis, epistaxis, fissure, hemorrhoids, as well as others were entertained. Physical exam: As above. ER treatment provided: Monitoring On reassessment the patient felt some abdominal discomfort. CT imaging ordered. Diagnostics interpreted by me: ECG: As above. The labs revealed an unremarkable CBC except for mild anemia. Chemistry panel unremarkable. Urinalysis some questionable as this was drawn from the indwelling Russell. Will need follow-up. Consultation: A consultation was placed with the hospitalist. The case was discussed and diagnostics were reviewed. The patient was evaluated in the ER for further treatment. Medication Reconcilliation Current Medication List: was personally reviewed by me Blood Pressure Screening Patient's blood pressure: Normal blood pressure Blood pressure disposition: Did not require urgent referral Consults Time Called: 1630 Consulting Physician: Lissette Kuo PA-C - [facility] Returned Call: 1634 Discussed the patient's case. The patient will be evaluated for further treatment and disposition. Impression Primary Impression: GI bleed Scribe Attestation The scribe's documentation has been prepared under my direction and personally reviewed by me in its entirety. I confirm that the note above accurately reflects all work, treatment, procedures, and medical decision making performed by me. Departure Information Dispostion Being Evaluated By Hospitalist Referrals Blane Marrero MD (PCP) Patient Instructions My [facility]
[2017-09-07] MEDS ORDERED: SODIUM CHLORIDE 0.9% 1000ML 1,000 ML IV SCH (21:00)
[2017-09-07] MEDS: BUDESONIDE/FORMOTEROL FUMARATE 160/4.5 60 PUFFS/INHALER INH SCH (21:38)
[2017-09-07] MEDS: PANTOprazole INJ 40 MG in SYRINGE 0 ML IV SCH (21:38)
[2017-09-07] MEDS: TAMSULOSIN HCL 0.4 MG CAP PO SCH (21:39)
[2017-09-08] VITALS (7 sets, daily range): BP systolic 97–132; BP diastolic 54–69; PULSE 70–89; TEMP 36.3–36.8; O2SAT 93–98
[2017-09-08 00:03] LABS: HEMATOCRIT 30.1 % (42-52); HEMOGLOBIN 10.3 g/dL (14.0-18.0)
[2017-09-08] MEDS: AVODART: ORDER AWAITING ACTION SCH ×2 (00:42→06:56)
[2017-09-08] MEDS: ATORVASTATIN 20 MG TAB PO SCH (08:07)
[2017-09-08] MEDS: PANTOprazole INJ 40 MG in SYRINGE 0 ML IV SCH ×2 (08:07→20:12)
[2017-09-08] MEDS: BUDESONIDE/FORMOTEROL FUMARATE 160/4.5 60 PUFFS/INHALER INH SCH ×2 (08:08→20:12)
[2017-09-08 08:27] LABS: HEMATOCRIT 29.6 % (42-52); HEMOGLOBIN 9.9 g/dL (14.0-18.0); MEAN CELL VOLUME 93.7 fL (80-100); MEAN CORPUSCULAR HEMOGLOBIN 31.3 pg (25-34); MEAN CORPUSCULAR HGB CONC 33.4 g/dl (32-36); RED CELL DISTRIBUTION WIDTH SD 47.9 fL (36.4-46.3); WHITE BLOOD COUNT 10.59 K/uL (4.8-10.8)
[2017-09-08 08:55] LABS: CALCIUM 7.8 mg/dl (8.5-10.1); CREATININE 0.95 mg/dl (0.60-1.40); POTASSIUM 4.4 mmol/L (3.5-5.1)
[2017-09-08] MEDS: OXYCODONE/ACETAMINOPHEN 5-325 TAB PO PRN ×3 (09:25→20:19)
[2017-09-08 09:30] LABS: MEAN PLATELET VOLUME 9.8 fL (7.4-10.4); PLATELET COUNT 80 K/uL (130-400)
--- NOTE | 2017-09-08 10:45 | Gastrointestinal Consultation ---
Gastrointestinal Consultation Date of Consultation: Sep 08, 2017 Attending Physician: Dr. Means Consulting Physician: Dr. 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 He also has a history of lower Gi bleed approx a year ago which was presumed to be diverticular. He presented to the ER last evening with complaints of rectal bleeding and some crampy lower abdominal pain. Hemoglobin noted to decrease to 9.9 from 12.2. Feels OK this AM. Tolerating clear liquids. No abdominal pain. Still with some bleeding, but has slowed per patient and family. Last colonoscopy was about a year ago. He had an EGD at that time as well. Past Medical/Surgical History Medical Problems: (1) Diarrhea Status: Acute (2) GI bleed Status: Acute (3) Hematuria Status: Acute (4) Hypotension Status: Acute (5) Renal insufficiency Status: Acute (6) Urinary retention Status: Acute (7) Weakness Status: Acute Past Medical History: as detailed in HPI Past Surgical History: appendectomy Family History Cirrhosis of liver BROTHER Leukemia MOTHER Social History Smoking Status: Never Smoker Marital Status: Housing Status: lives with family Occupation Status: retired Allergies Coded Allergies: No Known Allergies (Verified , 06/12/17) Current Medications Home Meds and Scripts Medications Dose Route/Sig Max Daily Dose Days Date Category Dose Instructions Folic Acid 1 Mg Tab 1 Mg PO DAILY 09/07/17 Reported Lipitor (Atorvastatin Calcium) 20 Mg Tab 20 Mg PO DAILY 06/12/17 Reported Ventolin Hfa (Albuterol) 200 Puffs/88162 Mcg Aers 2-4 Puffs INH Q6H PRN 06/12/17 Reported Prednisone 5 Mg Tab 2.5 Mg PO QAM 06/12/17 Reported Methotrexate 2.5 Mg Tab 3 Tabs PO WK 06/12/17 Reported Takes every Sunday. Levalbuterol HCl (Levalbuterol) 0.63 Mg/3 Ml Nebu 3 Ml NEB Q8 PRN 06/12/17 Reported Symbicort 160/4.5 Inhaler (Budesonide/Formoterol Fumarate) Aero 2 Puffs INH BID 06/12/17 Reported Aspirin Ec (Aspirin) 81 Mg Tab 81 Mg PO DAILY 06/12/17 Reported Avodart (Dutasteride) 0.5 Mg Cap 0.5 Mg PO DAILY 05/03/17 Reported Flomax (Tamsulosin Hcl) 0.4 Mg Cap 0.4 Mg PO HS 05/03/17 Reported Review of Systems as systems reviewed and negative except as noted Physical Exam Date Time Temp Pulse Resp B/P (MAP) Pulse Ox O2 Delivery O2 Flow Rate FiO2 09/08/17 09:20 Room Air 09/08/17 07:59 36.4 76 18 117/54 (75) 97 Room Air 09/08/17 04:00 36.6 76 20 119/69 (86) 97 Room Air 09/08/17 00:20 36.7 70 18 113/68 (83) 95 Room Air 09/08/17 00:00 Room Air 09/07/17 20:09 36.6 103 20 109/79 96 Room Air 09/07/17 20:08 36.6 103 20 109/79 (89) 96 Room Air 09/07/17 18:30 85 09/07/17 17:37 96 18 121/73 94 Room Air 09/07/17 16:15 101 18 129/79 97 Room Air 09/07/17 14:51 96 Room Air 09/07/17 14:31 36.7 106 16 149/86 98 Room Air 09/07/17 14:29 108 General Appearance: WD/WN, no apparent distress Eyes: normal inspection, PERRL ENT: normal ENT inspection, hearing grossly normal, pharynx normal Neck: supple, no adenopathy, no JVD Respiratory/Chest: chest non-tender, lungs clear, normal breath sounds Cardiovascular: regular rate, rhythm, no murmur Abdomen: normal bowel sounds, non tender, soft Extremities: normal range of motion, non-tender, no pedal edema Neurologic/Psych: psychiatric tech II-XII nml as tested, no motor/sensory deficits, alert, normal mood/affect, oriented x 3 Skin: normal color, no jaundice, warm/dry, no rash Laboratory Results Last 24 Hours Test 09/07/17 13:45 09/07/17 16:15 09/07/17 18:14 09/07/17 23:54 White Blood Count 7.34 K/uL Red Blood Count 3.77 M/uL Hemoglobin 12.2 g/dL 11.5 g/dL 10.3 g/dL Hematocrit 35.6 % 34.3 % 30.1 % Mean Corpuscular Volume 94.4 fL Mean Corpuscular Hemoglobin 32.4 pg Mean Corpuscular Hemoglobin Concent 34.3 g/dl Platelet Count 88 K/uL Mean Platelet Volume 11.4 fL Neutrophils (%) (Auto) 71.0 % Lymphocytes (%) (Auto) 13.2 % Monocytes (%) (Auto) 11.0 % Eosinophils (%) (Auto) 2.9 % Basophils (%) (Auto) 0.4 % Neutrophils # (Auto) 5.21 K/uL Lymphocytes # (Auto) 0.97 K/uL Monocytes # (Auto) 0.81 K/uL Eosinophils # (Auto) 0.21 K/uL Basophils # (Auto) 0.03 K/uL RDW Standard Deviation 46.8 fL RDW Coefficient of Variation 13.8 % Immature Granulocyte % (Auto) 1.5 % Immature Granulocyte # (Auto) 0.11 K/uL Platelet Estimate DECREASED Prothrombin Time 10.5 SECONDS Prothromb Time International Ratio 1.0 Activated Partial Thromboplast Time 23.1 SECONDS Partial Thromboplastin Ratio 0.9 Sodium Level 138 mmol/L Potassium Level 4.3 mmol/L Chloride Level 105 mmol/L Carbon Dioxide Level 24 mmol/L Anion Gap 9.0 mmol/L Blood Urea Nitrogen 17 mg/dl Creatinine 1.00 mg/dl Est Creatinine Clear Calc Drug Dose 61.8 ml/min Estimated GFR () 80.3 Estimated GFR (Non- 69.3 BUN/Creatinine Ratio 17.0 Random Glucose 125 mg/dl Calcium Level 8.8 mg/dl Total Bilirubin 0.5 mg/dl Direct Bilirubin 0.1 mg/dl Aspartate Amino Transf (AST/SGOT) 40 U/L Alanine Aminotransferase (ALT/SGPT) 20 U/L Alkaline Phosphatase 107 U/L Total Protein 6.0 gm/dl Albumin 2.5 gm/dl Lipase 126 U/L Urine Color YELLOW Urine Appearance CLOUDY Urine pH 6.0 Urine Specific [place] 1.012 Urine Protein NEG Urine Glucose (UA) NEG Urine Ketones NEG Urine Occult Blood 3+ Urine Nitrite NEG Urine Bilirubin NEG Urine Urobilinogen NEG Urine Leukocyte Esterase MODERATE Urine WBC (Auto) >30 /hpf Urine RBC (Auto) 10-30 /hpf Urine Hyaline Casts (Auto) 1-5 /lpf Urine Epithelial Cells (Auto) 10-20 /lpf Urine Bacteria (Auto) 1+ Urine Crystals CALCIUM OXALATE Urine Yeast (Auto) Test 09/08/17 08:18 White Blood Count 10.59 K/uL Red Blood Count 3.16 M/uL Hemoglobin 9.9 g/dL Hematocrit 29.6 % Mean Corpuscular Volume 93.7 fL Mean Corpuscular Hemoglobin 31.3 pg Mean Corpuscular Hemoglobin Concent 33.4 g/dl RDW Standard Deviation 47.9 fL RDW Coefficient of Variation 14.0 % Platelet Count 80 K/uL Mean Platelet Volume 9.8 fL Prothrombin Time 10.8 SECONDS Prothromb Time International Ratio 1.0 Sodium Level 140 mmol/L Potassium Level 4.4 mmol/L Chloride Level 108 mmol/L Carbon Dioxide Level 26 mmol/L Anion Gap 6.0 mmol/L Blood Urea Nitrogen 30 mg/dl Creatinine 0.95 mg/dl Est Creatinine Clear Calc Drug Dose 58.9 ml/min Estimated GFR () 85.5 Estimated GFR (Non- 73.7 BUN/Creatinine Ratio 31.6 Random Glucose 97 mg/dl Calcium Level 7.8 mg/dl Impression Patient is a 81 year old male with metastatic [place] Cell CA and a history of diverticular bleed in the past admitted with rectal bleeding with some mild lower cramping. Suspect this is a diverticular bleed and will be self limited. He does not want to consider a colonoscopy. Ischemic colitis is also a possibility. Plan - Follow symptoms. - Follow H/H. - Agree with conservative mgt.
[2017-09-08 16:21] LABS: HEMATOCRIT 26.8 % (42-52)
--- NOTE | 2017-09-08 18:44 | Progress Note ---
Internal Med Progress Note Date of Service: Sep 08, 2017. Provider Documentation: SUBJECTIVE: resting comfortably denies pain now\ no nausea afebrile says bleeding slowed down hard of earing family in room OBJECTIVE: Vital Signs-as noted below Exam: General-alert and awake. Not in distress ENT-hard of hearing Neck-no neck masses Lungs-cta b/l no wheezing or crackles Heart-S1 and S2 heard regular rate and rhythm, no murmurs Abdomen-soft bowel sounds present no tenderness no distension Extremities-no edema no erythema Neuro-alert and awake moves extremities Lab data as noted below. ASSESSMENT & PLAN: This is an 81yo M with [place] Cell Carcinoma with metastasis, bronchiectasis/ COPD, RA, DM II (diet controlled), BPH, HLD and tobacco use disorder who presents with bloody diarrhea . Lower GI bleed: 4-5 episodes of Melena, hematochezia on day of presentation VS stable, Hgb at 12 Protonix 40mg inj BID GI consulted, not interested in scope Holding aspirin, prednisone will transfuse ig hb<8.0 no aggressive treatment as per family palliative care consult RA: on methotrexate, folic acid Holding prednisone Tramadol 50mg Q4 PRN Percocet prn [place] Cell Carcinoma: Widespread mets S/p chemo and radiation Decided not to pursue another round of chemo Palliative consulted to discuss goals of care pain control Bronchiectasis/COPD: Stable on symbicort, xopenex nebs, albuterol PRN DM II: Diet controlled A1c of 5.6 in Jun 2017 Diabetic diet BPH: s/p Russell on flomax, avodart DVT Ppx: SCDs Code status: DNR PCP: Elida Dispo: Admitted to [facility]. social service for d/c planning Vital Signs: Date Time Temp Pulse Resp B/P (MAP) Pulse Ox O2 Delivery O2 Flow Rate FiO2 09/08/17 16:02 36.3 81 18 106/68 (81) 98 Room Air 09/08/17 15:27 Room Air 09/08/17 11:50 36.4 76 18 97/56 (70) 96 Room Air 09/08/17 09:20 Room Air 09/08/17 07:59 36.4 76 18 117/54 (75) 97 Room Air 09/08/17 04:00 36.6 76 20 119/69 (86) 97 Room Air 09/08/17 00:20 36.7 70 18 113/68 (83) 95 Room Air 09/08/17 00:00 Room Air 09/07/17 20:09 36.6 103 20 109/79 96 Room Air 09/07/17 20:08 36.6 103 20 109/79 (89) 96 Room Air Lab Results: Results Past 24 Hours Test 09/07/17 23:54 09/08/17 08:18 09/08/17 16:02 Range/Units Hemoglobin 10.3 9.9 9.0 14.0-18.0 g/dL Hematocrit 30.1 29.6 26.8 42-52 % White Blood Count 10.59 4.8-10.8 K/uL Red Blood Count 3.16 4.7-6.1 M/uL Mean Corpuscular Volume 93.7 80-100 fL Mean Corpuscular Hemoglobin 31.3 25-34 pg Mean Corpuscular Hemoglobin Concent 33.4 32-36 g/dl RDW Standard Deviation 47.9 36.4-46.3 fL RDW Coefficient of Variation 14.0 11.5-14.5 % Platelet Count 80 130-400 K/uL Mean Platelet Volume 9.8 7.4-10.4 fL Prothrombin Time 10.8 9.0-12.0 SECONDS Prothromb Time International Ratio 1.0 0.9-1.1 Sodium Level 140 136-145 mmol/L Potassium Level 4.4 3.5-5.1 mmol/L Chloride Level 108 98-107 mmol/L Carbon Dioxide Level 26 21-32 mmol/L Anion Gap 6.0 3-11 mmol/L Blood Urea Nitrogen 30 7-18 mg/dl Creatinine 0.95 0.60-1.40 mg/dl Est Creatinine Clear Calc Drug Dose 58.9 ml/min Estimated GFR () 85.5 Estimated GFR (Non- 73.7 BUN/Creatinine Ratio 31.6 10-20 Random Glucose 97 70-99 mg/dl Calcium Level 7.8 8.5-10.1 mg/dl
[2017-09-08] MEDS: TAMSULOSIN HCL 0.4 MG CAP PO SCH (20:12)
[2017-09-09 04:00] VITALS: BP 137/82; PULSE 74; TEMP 36.6; O2SAT 94
[2017-09-09 06:06] LABS: HEMATOCRIT 25.3 % (42-52); HEMOGLOBIN 8.5 g/dL (14.0-18.0); MEAN CELL VOLUME 93.4 fL (80-100); MEAN CORPUSCULAR HEMOGLOBIN 31.4 pg (25-34); MEAN CORPUSCULAR HGB CONC 33.6 g/dl (32-36); RED CELL DISTRIBUTION WIDTH CV 14.1 % (11.5-14.5); RED CELL DISTRIBUTION WIDTH SD 47.8 fL (36.4-46.3); WHITE BLOOD COUNT 9.66 K/uL (4.8-10.8)
[2017-09-09 06:18] LABS: MEAN PLATELET VOLUME 10.7 fL (7.4-10.4); PLATELET COUNT 81 K/uL (130-400)
[2017-09-09 06:38] LABS: BASO % 0.2 %; BASO ABS # 0.02 K/uL (0-0.2); EOS ABS # 0.29 K/uL (0-0.5); IG# 0.06 K/uL (0.00-0.02); LYMPH ABS # 0.97 K/uL (1.2-3.4); MONO % 8.2 %; MONO ABS # 0.79 K/uL (0.11-0.59); NEUT ABS # 7.53 K/uL (1.4-6.5)
[2017-09-09 06:39] LABS: CALCIUM 7.9 mg/dl (8.5-10.1); CREATININE 1.12 mg/dl (0.60-1.40); POTASSIUM 4.2 mmol/L (3.5-5.1)
[2017-09-09 07:48] VITALS: BP 120/62; PULSE 94; TEMP 36.8; O2SAT 98
[2017-09-09] MEDS: AVODART: ORDER AWAITING ACTION SCH ×3 (08:00→10:46)
[2017-09-09] MEDS: PANTOprazole INJ 40 MG in SYRINGE 0 ML IV SCH (08:23)
[2017-09-09] MEDS: OXYCODONE/ACETAMINOPHEN 5-325 TAB PO PRN (08:23)
[2017-09-09] MEDS: ATORVASTATIN 20 MG TAB PO SCH (08:23)
[2017-09-09] MEDS: BUDESONIDE/FORMOTEROL FUMARATE 160/4.5 60 PUFFS/INHALER INH SCH ×2 (08:24→20:36)
[2017-09-09] MEDS ORDERED: METHOTREXATE 2.5 MG TAB PO SCH (09:00)
[2017-09-09 15:00] VITALS: BP 133/70; PULSE 82; TEMP 36.7; O2SAT 98
[2017-09-09] MEDS ORDERED: LIDOCAINE HCL 2% JELLY 30 ML TUBE EXT ONE (15:41)
--- NOTE | 2017-09-09 16:08 | Progress Note ---
Internal Med Progress Note Date of Service: Sep 09, 2017. Provider Documentation: SUBJECTIVE: resting comfortably no more bleeding per rectum likes to advance the diet afebrile no pain OBJECTIVE: Vital Signs-as noted below Exam: General-alert and awake. Not in distress ENT-hard of hearing Neck-no neck masses Lungs-cta b/l no wheezing or crackles Heart-S1 and S2 heard regular rate and rhythm, no murmurs Abdomen-soft bowel sounds present no tenderness no distension Extremities-no edema no erythema Neuro-alert and awake moves extremities Lab data as noted below. ASSESSMENT & PLAN: This is an 81yo M with [place] Cell Carcinoma with metastasis, bronchiectasis/ COPD, RA, DM II (diet controlled), BPH, HLD and tobacco use disorder who presents with bloody diarrhea . Lower GI bleed: 4-5 episodes of Melena, hematochezia on day of presentation VS stable, Hgb at 12 Protonix 40mg inj BID GI consulted, not interested in scope Holding aspirin, prednisone will transfuse ig hb<8.0 no aggressive treatment as per family palliative care consult hb 8.5 today bleeding stopped change ppi to po advance diet RA: on methotrexate, folic acid Holding prednisone Tramadol 50mg Q4 PRN Percocet prn [place] Cell Carcinoma: Widespread mets S/p chemo and radiation Decided not to pursue another round of chemo Palliative consulted to discuss goals of care pain control Bronchiectasis/COPD: Stable on symbicort, xopenex nebs, albuterol PRN DM II: Diet controlled A1c of 5.6 in Jun 2017 Diabetic diet BPH: s/p Russell on flomax, avodart DVT Ppx: SCDs Code status: DNR PCP: Elida Dispo: Admitted to [facility] social service for d/c planning Vital Signs: Date Time Temp Pulse Resp B/P (MAP) Pulse Ox O2 Delivery O2 Flow Rate FiO2 09/09/17 15:37 Room Air 09/09/17 08:52 Room Air 09/09/17 07:48 36.8 94 18 120/62 (81) 98 Room Air 09/09/17 04:00 36.6 74 20 137/82 (100) 94 Room Air 09/09/17 00:59 Room Air 09/08/17 23:51 36.5 18 132/66 (88) 93 Room Air 09/08/17 21:30 Room Air 09/08/17 19:38 36.8 89 18 103/58 (73) 94 Room Air Lab Results: Results Past 24 Hours Test 09/09/17 05:47 09/09/17 16:00 Range/Units White Blood Count 9.66 4.8-10.8 K/uL Red Blood Count 2.71 4.7-6.1 M/uL Hemoglobin 8.5 14.0-18.0 g/dL Hematocrit 25.3 42-52 % Mean Corpuscular Volume 93.4 80-100 fL Mean Corpuscular Hemoglobin 31.4 25-34 pg Mean Corpuscular Hemoglobin Concent 33.6 32-36 g/dl Platelet Count 81 130-400 K/uL Mean Platelet Volume 10.7 7.4-10.4 fL Neutrophils (%) (Auto) 78.0 % Lymphocytes (%) (Auto) 10.0 % Monocytes (%) (Auto) 8.2 % Eosinophils (%) (Auto) 3.0 % Basophils (%) (Auto) 0.2 % Neutrophils # (Auto) 7.53 1.4-6.5 K/uL Lymphocytes # (Auto) 0.97 1.2-3.4 K/uL Monocytes # (Auto) 0.79 0.11-0.59 K/uL Eosinophils # (Auto) 0.29 0-0.5 K/uL Basophils # (Auto) 0.02 0-0.2 K/uL RDW Standard Deviation 47.8 36.4-46.3 fL RDW Coefficient of Variation 14.1 11.5-14.5 % Immature Granulocyte % (Auto) 0.6 % Immature Granulocyte # (Auto) 0.06 0.00-0.02 K/uL Red Blood Cell Morphology Unremarkable Sodium Level 138 136-145 mmol/L Potassium Level 4.2 3.5-5.1 mmol/L Chloride Level 107 98-107 mmol/L Carbon Dioxide Level 23 21-32 mmol/L Anion Gap 8.0 3-11 mmol/L Blood Urea Nitrogen 37 7-18 mg/dl Creatinine 1.12 0.60-1.40 mg/dl Est Creatinine Clear Calc Drug Dose 50.0 ml/min Estimated GFR () 70.0 Estimated GFR (Non- 60.4 BUN/Creatinine Ratio 32.9 10-20 Random Glucose 85 70-99 mg/dl Calcium Level 7.9 8.5-10.1 mg/dl Magnesium Level 1.9 1.8-2.4 mg/dl
[2017-09-09 16:23] LABS: HEMATOCRIT 25.1 % (42-52); HEMOGLOBIN 8.6 g/dL (14.0-18.0)
[2017-09-09 20:00] VITALS: BP 96/56; PULSE 96; TEMP 36.9; O2SAT 92
[2017-09-09] MEDS: PANTOprazole SOD 40 MG TAB PO SCH (20:37)
[2017-09-09] MEDS: TAMSULOSIN HCL 0.4 MG CAP PO SCH (20:37)
[2017-09-10 00:32] VITALS: BP 106/58; PULSE 89; TEMP 36.7; O2SAT 96
[2017-09-10 04:00] VITALS: BP 108/52; PULSE 81; TEMP 36.7; O2SAT 95
[2017-09-10 05:46] LABS: HEMOGLOBIN 8.1 g/dL (14.0-18.0); MEAN CELL VOLUME 92.3 fL (80-100); MEAN CORPUSCULAR HEMOGLOBIN 31.2 pg (25-34); MEAN CORPUSCULAR HGB CONC 33.8 g/dl (32-36); RED CELL DISTRIBUTION WIDTH CV 13.9 % (11.5-14.5); RED CELL DISTRIBUTION WIDTH SD 46.8 fL (36.4-46.3); WHITE BLOOD COUNT 7.32 K/uL (4.8-10.8)
[2017-09-10 05:54] LABS: MEAN PLATELET VOLUME 10.5 fL (7.4-10.4); PLATELET COUNT 91 K/uL (130-400)
[2017-09-10 06:04] LABS: BASO % 0.4 %; BASO ABS # 0.03 K/uL (0-0.2); CALCIUM 7.9 mg/dl (8.5-10.1); EOS % 2.7 %; IG# 0.04 K/uL (0.00-0.02); LYMPH % 9.7 %; LYMPH ABS # 0.71 K/uL (1.2-3.4); MONO % 9.7 %; MONO ABS # 0.71 K/uL (0.11-0.59); NEUT ABS # 5.63 K/uL (1.4-6.5); POTASSIUM 3.9 mmol/L (3.5-5.1)
[2017-09-10] MEDS: AVODART: ORDER AWAITING ACTION SCH ×3 (08:00→16:00)
[2017-09-10] MEDS: ATORVASTATIN 20 MG TAB PO SCH (08:28)
[2017-09-10] MEDS: BUDESONIDE/FORMOTEROL FUMARATE 160/4.5 60 PUFFS/INHALER INH SCH ×2 (08:28→20:52)
[2017-09-10] MEDS: PANTOprazole SOD 40 MG TAB PO SCH ×2 (08:29→20:53)
[2017-09-10 08:38] VITALS: BP 111/68; PULSE 76; TEMP 36.8; O2SAT 97
[2017-09-10] MEDS: OXYCODONE/ACETAMINOPHEN 5-325 TAB PO PRN (08:53)
--- NOTE | 2017-09-10 09:24 | Clinical Documentation Query ---
WILLIE Whalen : CLINICAL DOCUMENTATION QUERY Patient is an 81 year old male admitted for lower GI bleeding. Admission H&H was 12.2 g/dl and 35.6%. Repeat values this a.m. were 8.1 g/dl and 24%. He is being followed by GI storage consultant and monitored with serial hematology. As appropriate, consider documentation as suggested below as this impacts DRG assignment. Thank you. In your clinical opinion is this patient being managed for: ( ) Acute blood loss anemia ( ) Not Agree ( ) Other explanation of clinical findings (Please Explain) ( ) Unable to determine (Please Define) ( ) Need to Discuss The medical record reflects the following clinical findings, treatment, and risk factors. Clinical Indicators: As above Treatment:He is being followed by GI storage consultant and monitored with serial hematology Risk Factors: Known history of diverticulosis and likely diverticular bleed Please clarify and document your clinical opinion in the progress notes and discharge summary. Terms such as "probable", "suspected", "likely", "questionable", "possible", or "still to be ruled out" are acceptable. IF IN AGREEMENT, YOU MUST DOCUMENT ABOVE DIAGNOSTIC STATEMENT IN DAILY PROGRESS NOTES AND DISCHARGE SUMMARY. This document is not part of the patient's record. Thank You, Bob García, RN [phone]
--- NOTE | 2017-09-10 10:03 | Gastroenterology Progress Note ---
Progress Note Date of Service: Sep 10, 2017 Subjective Pt evaluation today including: conversation w/ patient, physical exam, chart review, lab review, review of inpatient medication list Pt sitting up in bed, feels well, ate breakfast w/o n/v. He denies any abd pain. No BMs since 2 days ago. His Hgb staying around 8. Review of Systems Constitutional: No fever, No chills Respiratory: No cough, No shortness of breath Abdomen: No pain, No nausea, No vomiting, No GI bleeding Medications Current Inpatient Medications Medications (Trade) Dose Ordered Sig/Maryam Route Start Time Stop Time Status Last Admin Dose Admin Acetaminophen (Tylenol Tab) 650 mg Q4H PRN PO 09/07/17 17:45 10/07/17 17:44 Ondansetron HCl (Zofran Inj) 4 mg Q6H PRN IV 09/07/17 17:45 10/07/17 17:44 Albuterol (Ventolin Hfa Inhaler) 2 puffs Q6H PRN INH 09/07/17 19:15 10/07/17 19:14 Atorvastatin Calcium (Lipitor Tab) 20 mg DAILY PO 09/08/17 08:00 10/08/17 08:59 09/10/17 08:28 20 MG Budesonide/ Formoterol Fumarate (Symbicort 160/ 4.5 Inh) 2 puffs BID INH 09/07/17 20:00 10/07/17 20:59 09/10/17 08:28 2 PUFFS Folic Acid (Folvite Tab) 1 mg DAILY PO 09/08/17 08:00 10/08/17 08:59 09/10/17 08:28 1 MG Levalbuterol (Xopenex 0.63 Mg/ 3 Ml Neb) 0.63 mg Q8 PRN INH 09/07/17 19:15 10/07/17 19:14 Methotrexate (Methotrexate Tab) 7.5 mg Curran@0900 PO 09/09/17 09:00 10/09/17 08:59 09/09/17 08:29 7.5 MG Tamsulosin HCl (Flomax Cap) 0.4 mg HS PO 09/07/17 21:00 10/07/17 20:59 09/09/17 20:37 0.4 MG Miscellaneous Information (Order Awaiting Action) 1 ea QS N/A 09/08/17 00:00 10/08/17 00:00 Tramadol HCl (Ultram Tab) 50 mg Q4 PRN PO 09/07/17 20:00 10/07/17 19:59 09/08/17 08:11 50 MG Oxycodone/ Acetaminophen (Percocet 5-325mg Tab) 1 tab Q4H PRN PO 09/08/17 09:00 09/22/17 08:59 09/10/17 08:53 1 TAB Pantoprazole Sodium (Protonix Tab) 40 mg BID PO 09/09/17 20:00 10/09/17 19:59 09/10/17 08:29 40 MG Heparin Sodium (Porcine) (Heparin 100 Unit/ml 5ml Flush) 5 ml PRN PRN IV 09/10/17 05:45 10/10/17 05:44 Objective Vital Signs Date Time Temp Pulse Resp B/P (MAP) Pulse Ox O2 Delivery O2 Flow Rate FiO2 09/10/17 08:38 36.8 76 17 111/68 (82) 97 Room Air 09/10/17 04:00 36.7 81 18 108/52 (70) 95 Room Air 09/10/17 00:32 36.7 89 18 106/58 (74) 96 Room Air 09/10/17 00:00 Room Air 09/09/17 20:00 Room Air 09/09/17 20:00 36.9 96 20 96/56 (69) 92 Room Air 09/09/17 15:37 Room Air 09/09/17 15:00 36.7 82 20 133/70 (91) 98 Room Air Physical Exam General Appearance: WD/WN, no apparent distress Eyes: normal inspection, PERRL, EOMI Neck: supple, no JVD, trachea midline Respiratory/Chest: normal breath sounds, no respiratory distress, no accessory muscle use Cardiovascular: regular rate, rhythm, no gallop, no murmur Abdomen: normal bowel sounds, non tender, soft Extremities: normal inspection, no pedal edema, no calf tenderness Neurologic/Psych: alert, normal mood/affect, + pertinent finding (very hard of hearing; hearing aid at bedside broken per pt. ) Skin: normal color, no jaundice, no rash Laboratory Results Last 24 Hours Test 09/09/17 16:13 2/5/18 05:27 Hemoglobin 8.6 g/dL 8.1 g/dL Hematocrit 25.1 % 24.0 % White Blood Count 7.32 K/uL Red Blood Count 2.60 M/uL Mean Corpuscular Volume 92.3 fL Mean Corpuscular Hemoglobin 31.2 pg Mean Corpuscular Hemoglobin Concent 33.8 g/dl Platelet Count 91 K/uL Mean Platelet Volume 10.5 fL Neutrophils (%) (Auto) 77.0 % Lymphocytes (%) (Auto) 9.7 % Monocytes (%) (Auto) 9.7 % Eosinophils (%) (Auto) 2.7 % Basophils (%) (Auto) 0.4 % Neutrophils # (Auto) 5.63 K/uL Lymphocytes # (Auto) 0.71 K/uL Monocytes # (Auto) 0.71 K/uL Eosinophils # (Auto) 0.20 K/uL Basophils # (Auto) 0.03 K/uL RDW Standard Deviation 46.8 fL RDW Coefficient of Variation 13.9 % Immature Granulocyte % (Auto) 0.5 % Immature Granulocyte # (Auto) 0.04 K/uL Hypersegmented Polys 1+ Sodium Level 140 mmol/L Potassium Level 3.9 mmol/L Chloride Level 108 mmol/L Carbon Dioxide Level 26 mmol/L Anion Gap 6.0 mmol/L Blood Urea Nitrogen 33 mg/dl Creatinine 1.00 mg/dl Est Creatinine Clear Calc Drug Dose 56.0 ml/min Estimated GFR () 80.3 Estimated GFR (Non- 69.3 BUN/Creatinine Ratio 33.1 Random Glucose 91 mg/dl Calcium Level 7.9 mg/dl Magnesium Level 2.2 mg/dl Assessment and Plan Patient is a 81 year old male with metastatic [place] Cell CA and a history of diverticular bleed in the past admitted with rectal bleeding with some mild lower cramping. Last episode of GI bleed May 2016, with EGD/Colonoscopy, GI bleeding scan at that time w/o source of active GI bleeding. CT abd/pelvis w/o contrast showed extensive diverticulosis suspected to be source of rectal bleed. Other DDx: ischemic/infectious colitis (less likely). PLANS: - Monitor H/H and transfuse prn - May advance diet as tolerated. - Discussed possible repeat colonoscopy with pt but he would like to defer. - If diarrhea and bleeding restarts, pls check for stool cx and Cdiff. - Will sign off now since no more GI bleed, call if new questions/concerns arise. I performed a history and physical examination of the patient, including specifically on physical exam - abdomen is soft.I have discussed the patient's management with Cecelia. Please refer to the SOFTWARE APPLICATIONS ARCHITECT's note for the documented findings and plan of care. Clinically stable, no further bleeding. He refused colonoscopy.
--- NOTE | 2017-09-10 11:11 | Palliative Care Consultation ---
Consultation Date of Consultation: Sep 10, 2017. Requesting Physician: Dr. Means Attending Physician: Dr. Means Reason for Consultation: Goals of care History of Present Illness This 81 year old male patient with PMH [place] cell carcinoma, COPD, RA, DM type 2, BPH, and others listed below, presented to the ED three days ago with c/ o GI bleed. Follows with Dr. Rodas as outpatient for heme/onc. Per notes, had a PET scan and MRI in July which showed metastatic disease to lung, bone and brain-- he stopped chemotherapy at that time. Patient has had GI bleed in May 2017, had EGD as well which apparently showed no definitive source of the bleed. GI saw patient this admission and determined that it was likely a diverticular bleed which is self-limiting. Patient declined another EGD, does not want any further invasive or aggressive treatments. Palliative care is consulted to establish goals of care. I met with the patient, his Yecenia, daughter, and granddaughter, in room 422. Patient is awake, alert and oriented but is very hard of hearing. Patient confirmed that he does not want any further testing/procedures, wants to go home and be comfortable to allow nature to take its course. Patient's family was all in agreement and had questions about hospice care. I explained hospice and the service they provide. and daughter state that they can provide care for the patient in the home at this time, they are aware that hospice is not 26/02 service. Past Medical/Surgical History Medical History: BPH Bronchiectasis COPD Dyslipidemia Eczema GERD Pulmonary fibrosis PVCs RA Thoracic aortic aneurysm Surgical History: Appendectomy Social History Smoking Status: Never Smoker History of Alcohol Use: No Marital Status: Housing Status: lives with significant other Occupation Status: retired Review of Systems Constitutional: + weakness ENT: + hearing loss (patient's norm) Respiratory: + dyspnea on exertion (sometimes), No cough, No wheezing, No dyspnea at rest Cardiac: No chest pain, No edema Abdomen: No pain, No nausea, No vomiting, No GI bleeding (resolved) Male : No problem reported Psychiatric: No depression symptoms, No anxiety Allergies Coded Allergies: No Known Allergies (Verified , 06/12/17) Medications Current Inpatient Medications Medications (Trade) Dose Ordered Sig/Maryam Route Start Time Stop Time Status Last Admin Dose Admin Acetaminophen (Tylenol Tab) 650 mg Q4H PRN PO 2/2/18 17:45 10/07/17 17:44 Ondansetron HCl (Zofran Inj) 4 mg Q6H PRN IV 09/07/17 17:45 10/07/17 17:44 Albuterol (Ventolin Hfa Inhaler) 2 puffs Q6H PRN INH 09/07/17 19:15 10/07/17 19:14 Atorvastatin Calcium (Lipitor Tab) 20 mg DAILY PO 09/08/17 08:00 10/08/17 08:59 09/10/17 08:28 20 MG Budesonide/ Formoterol Fumarate (Symbicort 160/ 4.5 Inh) 2 puffs BID INH 09/07/17 20:00 10/07/17 20:59 09/10/17 08:28 2 PUFFS Folic Acid (Folvite Tab) 1 mg DAILY PO 09/08/17 08:00 10/08/17 08:59 09/10/17 08:28 1 MG Levalbuterol (Xopenex 0.63 Mg/ 3 Ml Neb) 0.63 mg Q8 PRN INH 09/07/17 19:15 10/07/17 19:14 Methotrexate (Methotrexate Tab) 7.5 mg Curran@0900 PO 09/09/17 09:00 10/09/17 08:59 09/09/17 08:29 7.5 MG Tamsulosin HCl (Flomax Cap) 0.4 mg HS PO 09/07/17 21:00 10/07/17 20:59 09/09/17 20:37 0.4 MG Miscellaneous Information (Order Awaiting Action) 1 ea QS N/A 09/08/17 00:00 10/08/17 00:00 Tramadol HCl (Ultram Tab) 50 mg Q4 PRN PO 09/07/17 20:00 10/07/17 19:59 09/08/17 08:11 50 MG Oxycodone/ Acetaminophen (Percocet 5-325mg Tab) 1 tab Q4H PRN PO 09/08/17 09:00 09/22/17 08:59 09/10/17 08:53 1 TAB Pantoprazole Sodium (Protonix Tab) 40 mg BID PO 09/09/17 20:00 10/09/17 19:59 09/10/17 08:29 40 MG Heparin Sodium (Porcine) (Heparin 100 Unit/ml 5ml Flush) 5 ml PRN PRN IV 09/10/17 05:45 10/10/17 05:44 Physical Exam Date Time Temp Pulse Resp B/P (MAP) Pulse Ox O2 Delivery O2 Flow Rate FiO2 09/10/17 08:38 36.8 76 17 111/68 (82) 97 Room Air 09/10/17 04:00 36.7 81 18 108/52 (70) 95 Room Air 09/10/17 00:32 36.7 89 18 106/58 (74) 96 Room Air 09/10/17 00:00 Room Air 09/09/17 20:00 Room Air 09/09/17 20:00 36.9 96 20 96/56 (69) 92 Room Air 09/09/17 15:37 Room Air 09/09/17 15:00 36.7 82 20 133/70 (91) 98 Room Air General Appearance: no apparent distress, + thin, + pertinent finding (frail, elderly) ENT: hearing grossly normal Neck: supple, no JVD Respiratory: no respiratory distress, no accessory muscle use, + decreased breath sounds (bilateral bases) Cardiovascular: regular rate, rhythm, no edema, + normal peripheral pulses Abdomen: normal bowel sounds, non tender, soft Neurologic/Psychiatric: alert, normal mood/affect, oriented x 3 Skin: normal color Laboratory Results Last 24 Hours Test 09/09/17 16:13 09/10/17 05:27 Hemoglobin 8.6 g/dL 8.1 g/dL Hematocrit 25.1 % 24.0 % White Blood Count 7.32 K/uL Red Blood Count 2.60 M/uL Mean Corpuscular Volume 92.3 fL Mean Corpuscular Hemoglobin 31.2 pg Mean Corpuscular Hemoglobin Concent 33.8 g/dl Platelet Count 91 K/uL Mean Platelet Volume 10.5 fL Neutrophils (%) (Auto) 77.0 % Lymphocytes (%) (Auto) 9.7 % Monocytes (%) (Auto) 9.7 % Eosinophils (%) (Auto) 2.7 % Basophils (%) (Auto) 0.4 % Neutrophils # (Auto) 5.63 K/uL Lymphocytes # (Auto) 0.71 K/uL Monocytes # (Auto) 0.71 K/uL Eosinophils # (Auto) 0.20 K/uL Basophils # (Auto) 0.03 K/uL RDW Standard Deviation 46.8 fL RDW Coefficient of Variation 13.9 % Immature Granulocyte % (Auto) 0.5 % Immature Granulocyte # (Auto) 0.04 K/uL Hypersegmented Polys 1+ Sodium Level 140 mmol/L Potassium Level 3.9 mmol/L Chloride Level 108 mmol/L Carbon Dioxide Level 26 mmol/L Anion Gap 6.0 mmol/L Blood Urea Nitrogen 33 mg/dl Creatinine 1.00 mg/dl Est Creatinine Clear Calc Drug Dose 56.0 ml/min Estimated GFR () 80.3 Estimated GFR (Non- 69.3 BUN/Creatinine Ratio 33.1 Random Glucose 91 mg/dl Calcium Level 7.9 mg/dl Magnesium Level 2.2 mg/dl Assessment & Plan Problem list: Pain, back GI bleed- no further bleeding at this time Generalized weakness, mild and is at baseline Metastatic [place] Cell carcinoma- mets to lung, bone and brain per documentation COPD- stable on home meds Hypoalbuminemia Goals of care (Z51.5) Palliative care recs: discussed with patient, , daughter, granddaughter, and Dr. Means. -Patient confirmed he is DNR and would like to be comfort measures only. -Given patient's advanced age, metastatic disease and no further treatment, as well as other comorbidities, I believe he does qualify for hospice. -Goal is for home with hospice. Family is in agreement to take patient home and provide care. They state they do not need any equipment to go home. food stand manager will follow up and make a referral to hospice agency. -Patient states the Percocet he took this AM worked for his back pain. Can continue this for now and hospice to make changes as needed to pain medication. Thank you kindly for this consult. Please contact me with any further palliative care needs. Total time spent 70 minutes. Greater than 50% of time with the patient was spent on counseling and coordinating care.
[2017-09-10 11:23] VITALS: BP 115/72; PULSE 74; TEMP 36.6; O2SAT 94
[2017-09-10 16:17] VITALS: BP 94/59; PULSE 102; TEMP 36.5; O2SAT 92
--- NOTE | 2017-09-10 19:10 | Progress Note ---
Internal Med Progress Note Date of Service: Sep 10, 2017. Provider Documentation: SUBJECTIVE: resting comfortably no more bleeding per rectum tolerating diet denies any pain afebrile OBJECTIVE: Vital Signs-as noted below Exam: General-alert and awake. Not in distress ENT-hard of hearing Neck-no neck masses Lungs-cta b/l no wheezing or crackles Heart-S1 and S2 heard regular rate and rhythm, no murmurs Abdomen-soft bowel sounds present no tenderness no distension Extremities-no edema no erythema Neuro-alert and awake moves extremities Lab data as noted below. ASSESSMENT & PLAN: This is an 81yo M with [place] Cell Carcinoma with metastasis, bronchiectasis/ COPD, RA, DM II (diet controlled), BPH, HLD and tobacco use disorder who presents with bloody diarrhea . Lower GI bleed: 4-5 episodes of Melena, hematochezia on day of presentation VS stable, Hgb at 12 Protonix 40mg inj BID GI consulted, not interested in scope Holding aspirin, prednisone will transfuse ig hb<8.0 no aggressive treatment as per family palliative care consult hb 8.1 today bleeding stopped change ppi to po advanced diet plan for home hospice in am RA: on methotrexate, folic acid Holding prednisone Tramadol 50mg Q4 PRN Percocet prn no complaints [place] Cell Carcinoma: Widespread mets S/p chemo and radiation Decided not to pursue another round of chemo Palliative consulted to discuss goals of care pain control Bronchiectasis/COPD: Stable on symbicort, xopenex nebs, albuterol PRN DM II: Diet controlled A1c of 5.6 in Jun 2017 Diabetic diet BPH: s/p Russell on flomax, avodart DVT Ppx: SCDs Code status: DNR PCP: Elida Dispo: Admitted to [facility] for d/c planning plan for home hospice in am Vital Signs: Date Time Temp Pulse Resp B/P (MAP) Pulse Ox O2 Delivery O2 Flow Rate FiO2 09/10/17 16:17 36.5 102 18 94/59 (71) 92 Room Air 09/10/17 11:23 36.6 74 16 115/72 (86) 94 Room Air 09/10/17 08:38 36.8 76 17 111/68 (82) 97 Room Air 09/10/17 08:30 Room Air 2/5/18 04:00 36.7 81 18 108/52 (70) 95 Room Air 09/10/17 00:32 36.7 89 18 106/58 (74) 96 Room Air 09/10/17 00:00 Room Air 09/09/17 20:00 Room Air 09/09/17 20:00 36.9 96 20 96/56 (69) 92 Room Air Lab Results: Results Past 24 Hours Test 09/10/17 05:27 Range/Units White Blood Count 7.32 4.8-10.8 K/uL Red Blood Count 2.60 4.7-6.1 M/uL Hemoglobin 8.1 14.0-18.0 g/dL Hematocrit 24.0 42-52 % Mean Corpuscular Volume 92.3 80-100 fL Mean Corpuscular Hemoglobin 31.2 25-34 pg Mean Corpuscular Hemoglobin Concent 33.8 32-36 g/dl Platelet Count 91 130-400 K/uL Mean Platelet Volume 10.5 7.4-10.4 fL Neutrophils (%) (Auto) 77.0 % Lymphocytes (%) (Auto) 9.7 % Monocytes (%) (Auto) 9.7 % Eosinophils (%) (Auto) 2.7 % Basophils (%) (Auto) 0.4 % Neutrophils # (Auto) 5.63 1.4-6.5 K/uL Lymphocytes # (Auto) 0.71 1.2-3.4 K/uL Monocytes # (Auto) 0.71 0.11-0.59 K/uL Eosinophils # (Auto) 0.20 0-0.5 K/uL Basophils # (Auto) 0.03 0-0.2 K/uL RDW Standard Deviation 46.8 36.4-46.3 fL RDW Coefficient of Variation 13.9 11.5-14.5 % Immature Granulocyte % (Auto) 0.5 % Immature Granulocyte # (Auto) 0.04 0.00-0.02 K/uL Hypersegmented Polys 1+ Sodium Level 140 136-145 mmol/L Potassium Level 3.9 3.5-5.1 mmol/L Chloride Level 108 98-107 mmol/L Carbon Dioxide Level 26 21-32 mmol/L Anion Gap 6.0 3-11 mmol/L Blood Urea Nitrogen 33 7-18 mg/dl Creatinine 1.00 0.60-1.40 mg/dl Est Creatinine Clear Calc Drug Dose 56.0 ml/min Estimated GFR () 80.3 Estimated GFR (Non- 69.3 BUN/Creatinine Ratio 33.1 10-20 Random Glucose 91 70-99 mg/dl Calcium Level 7.9 8.5-10.1 mg/dl Magnesium Level 2.2 1.8-2.4 mg/dl
[2017-09-10 19:43] VITALS: BP 132/75; PULSE 93; TEMP 36.6; O2SAT 97
[2017-09-10] MEDS: TAMSULOSIN HCL 0.4 MG CAP PO SCH (20:52)
[2017-09-11 00:09] VITALS: BP_SYST 110; BP_SYST 120; BP_DIAS 70; BP_DIAS 79; PULSE 100; PULSE 60; TEMP 36.9; O2SAT 95
[2017-09-11] MEDS: OXYCODONE/ACETAMINOPHEN 5-325 TAB PO PRN (03:15)
[2017-09-11 03:45] VITALS: BP 118/74; PULSE 62; TEMP 36.6; O2SAT 95
[2017-09-11 06:15] LABS: HEMATOCRIT 22.8 % (42-52); HEMOGLOBIN 7.9 g/dL (14.0-18.0); MEAN CELL VOLUME 92.7 fL (80-100); MEAN CORPUSCULAR HEMOGLOBIN 32.1 pg (25-34); MEAN CORPUSCULAR HGB CONC 34.6 g/dl (32-36); RED CELL DISTRIBUTION WIDTH CV 13.9 % (11.5-14.5); WHITE BLOOD COUNT 7.51 K/uL (4.8-10.8)
[2017-09-11 06:16] LABS: MEAN PLATELET VOLUME 10.6 fL (7.4-10.4); PLATELET COUNT 86 K/uL (130-400)
[2017-09-11 06:47] LABS: BASO % 0.3 %; BASO ABS # 0.02 K/uL (0-0.2); EOS ABS # 0.15 K/uL (0-0.5); IG# 0.04 K/uL (0.00-0.02); LYMPH % 11.1 %; LYMPH ABS # 0.83 K/uL (1.2-3.4); NEUT % 82.1 %; NEUT ABS # 6.17 K/uL (1.4-6.5)
[2017-09-11 07:00] LABS: CALCIUM 7.7 mg/dl (8.5-10.1); CREATININE 0.96 mg/dl (0.60-1.40); POTASSIUM 3.9 mmol/L (3.5-5.1)
[2017-09-11 07:11] VITALS: BP 95/58; PULSE 78; TEMP 36.5; O2SAT 97
[2017-09-11] MEDS: BUDESONIDE/FORMOTEROL FUMARATE 160/4.5 60 PUFFS/INHALER INH SCH (10:10)
[2017-09-11] MEDS: ATORVASTATIN 20 MG TAB PO SCH (10:11)
[2017-09-11] MEDS: PANTOprazole SOD 40 MG TAB PO SCH (10:11)
[2017-09-11] MEDS: AVODART: ORDER AWAITING ACTION SCH ×2 (10:12)
[2017-09-11] MEDS ORDERED: PRT40 PO (10:29)
[2017-09-11] MEDS ORDERED: OXYC-57 PO (10:29)
--- NOTE | 2017-09-11 10:33 | Discharge Instructions ---
Discharge Instructions Date of Service Sep 11, 2017. Admission Reason for Admission: Gi Bleed Discharge Discharge Diagnosis / Problem: GI BLEED, ANEMIA Discharge Goals Goal(s): Decrease discomfort Activity Recommendations Activity Limitations: resume your previous activity ( TOLERATED) . Instructions / Follow-Up Instructions / Follow-Up FOLLOWUP WITH FAMILY DOCTOR NEEDED STOPPED ASPIRIN AND PREDNISONE FOR GI BLEED. IF BLOOD PRESSURE DROPS AND NO BLEEDING CAN RESTART PREDNISONE. Current Hospital Diet Patient's current hospital diet: Diabetes Type 2 Diet, Regular Diet Discharge Diet Recommended Diet: Regular Diet, Diabetes Type 2 Diet Pending Studies Studies pending at discharge: no Medical Emergencies . Who to Call and When: Medical Emergencies: If at any time you feel your situation is an emergency, please call 911 immediately. . Non-Emergent Contact Non-Emergency issues call your: Primary Care Provider . . "Provider Documentation" section prepared by Walter Means. . VTE Core Measure Inpt VTE Proph given/why not?: SCD's
[2017-09-11] MEDS ORDERED: MULTTAB PO (10:34)
[2017-09-11 11:38] VITALS: BP 115/70; PULSE 100; TEMP 36.7; O2SAT 97
[2017-09-11 11:51] VITALS: BP 115/70; PULSE 100; TEMP 36.7; O2SAT 97
--- NOTE | 2017-09-11 12:15 | Progress Note ---
Internal Med Progress Note Date of Service: Sep 11, 2017. Provider Documentation: SUBJECTIVE: resting comfortably on the chair no more bleeding eating fine sys he is feeling fine and wants to go home family in room and want to take him home with hospice care OBJECTIVE: Vital Signs-as noted below Exam: General-alert and awake. Not in distress ENT-hard of hearing Neck-no neck masses Lungs-cta b/l no wheezing or crackles Heart-S1 and S2 heard regular rate and rhythm, no murmurs Abdomen-soft bowel sounds present no tenderness no distension Extremities-no edema no erythema Neuro-alert and awake moves extremities Lab data as noted below. ASSESSMENT & PLAN: This is an 81yo M with Kamron Cell Carcinoma with metastasis, bronchiectasis/ COPD, RA, DM II (diet controlled), BPH, HLD and tobacco use disorder who presents with bloody diarrhea . Lower GI bleed: 4-5 episodes of Melena, hematochezia on day of presentation VS stable, Hgb at 12 Protonix 40mg inj BID GI consulted, not interested in scope Holding aspirin, prednisone will transfuse ig hb<8.0 no aggressive treatment as per family palliative care consult bleeding stopped change ppi to po advanced diet and tolerating fine hb 7.9 today bit family does not want any blood transfusion. want to take patient home plan for home hospice today RA: on methotrexate, folic acid Holding prednisone Tramadol 50mg Q4 PRN Percocet prn no complaints Kamron Cell Carcinoma: Widespread mets S/p chemo and radiation Decided not to pursue another round of chemo Palliative consulted to discuss goals of care pain control plan for home hospice Bronchiectasis/COPD: Stable on symbicort, xopenex nebs, albuterol PRN DM II: Diet controlled A1c of 5.6 in Jun 2017 Diabetic diet BPH: s/p Russell on flomax, avodart DVT Ppx: SCDs Code status: DNR discharged home with hospice care Vital Signs: Date Time Temp Pulse Resp B/P (MAP) Pulse Ox O2 Delivery O2 Flow Rate FiO2 09/11/17 11:51 36.7 100 18 97 Room Air 09/11/17 11:38 36.7 100 18 115/70 (85) 97 Room Air 09/11/17 10:21 Room Air 09/11/17 09:20 Room Air 09/11/17 07:11 36.5 78 18 95/58 (70) 97 Room Air 09/11/17 03:45 36.6 62 18 118/74 (89) 95 Room Air 09/11/17 00:09 36.9 100 16 110/70 (83) 95 Room Air 09/10/17 23:20 Room Air 09/10/17 19:43 36.6 93 18 132/75 (94) 97 Room Air 09/10/17 16:30 Room Air 09/10/17 16:17 36.5 102 18 94/59 (71) 92 Room Air Lab Results: Results Past 24 Hours Test 09/11/17 05:56 Range/Units White Blood Count 7.51 4.8-10.8 K/uL Red Blood Count 2.46 4.7-6.1 M/uL Hemoglobin 7.9 14.0-18.0 g/dL Hematocrit 22.8 42-52 % Mean Corpuscular Volume 92.7 80-100 fL Mean Corpuscular Hemoglobin 32.1 25-34 pg Mean Corpuscular Hemoglobin Concent 34.6 32-36 g/dl Platelet Count 86 130-400 K/uL Mean Platelet Volume 10.6 7.4-10.4 fL Neutrophils (%) (Auto) 82.1 % Lymphocytes (%) (Auto) 11.1 % Monocytes (%) (Auto) 4.0 % Eosinophils (%) (Auto) 2.0 % Basophils (%) (Auto) 0.3 % Neutrophils # (Auto) 6.17 1.4-6.5 K/uL Lymphocytes # (Auto) 0.83 1.2-3.4 K/uL Monocytes # (Auto) 0.30 0.11-0.59 K/uL Eosinophils # (Auto) 0.15 0-0.5 K/uL Basophils # (Auto) 0.02 0-0.2 K/uL RDW Standard Deviation 46.0 36.4-46.3 fL RDW Coefficient of Variation 13.9 11.5-14.5 % Immature Granulocyte % (Auto) 0.5 % Immature Granulocyte # (Auto) 0.04 0.00-0.02 K/uL Large Platelets 1+ Sodium Level 134 136-145 mmol/L Potassium Level 3.9 3.5-5.1 mmol/L Chloride Level 103 98-107 mmol/L Carbon Dioxide Level 27 21-32 mmol/L Anion Gap 4.0 3-11 mmol/L Blood Urea Nitrogen 22 7-18 mg/dl Creatinine 0.96 0.60-1.40 mg/dl Est Creatinine Clear Calc Drug Dose 58.3 ml/min Estimated GFR () 84.4 Estimated GFR (Non- 72.8 BUN/Creatinine Ratio 22.9 10-20 Random Glucose 95 70-99 mg/dl Calcium Level 7.7 8.5-10.1 mg/dl Magnesium Level 2.0 1.8-2.4 mg/dl
--- NOTE | 2017-09-11 12:17 | Discharge Summary ---
Discharge Summary Date of Service Sep 11, 2017. Discharge Summary Admission Date: Sep 07, 2017 at 17:24 Discharge Date: Sep 11, 2017 Discharge Disposition: Home (with home hospice) Principal Diagnosis: GI BLEED ANEMIA Secondary Diagnoses/Problems: (1) BPH (benign prostatic hypertrophy) Status: Chronic (2) Bronchiectasis Status: Chronic (3) Chronic steroid use Status: Chronic (4) COPD (chronic obstructive pulmonary disease) Status: Chronic (5) Dyslipidemia Status: Chronic (6) Eczema Status: Chronic (7) GERD (gastroesophageal reflux disease) Status: Chronic (8) Pulmonary fibrosis Status: Chronic (9) PVC's (premature ventricular contractions) Status: Chronic (10) Rheumatoid arthritis Status: Chronic (11) Thoracic aortic aneurysm Status: Chronic Procedures: CT ABD/PELVIS: 1. Evaluation for gastrointestinal hemorrhage is limited in the absence of intravenous contrast. Within this limitation, no site of disease is identified, however, the extensive diverticulosis is likely the culprit of the hemorrhage. Diverticulosis without overt evidence of acute diverticulitis. 2. The Sandhu catheter balloon is positioned within the prostate. Repositioning recommended. Nonetheless, the bladder is appropriately decompressed. 3. Mildly macronodular contour of the liver. This could suggest underlying fibrosis/cirrhosis. 4. Multiple solid pulmonary nodules at the left lung base, which are new since PET/CT scan from 03/21/2017. Given the patient's history of cancer, these are concerning for metastatic disease. Consultations: GI PALLIATIVE CARE Medication Reconciliation New Medications: Multivitamins/Minerals (Mvi With Minerals) Tab 1 TAB PO DAILY, #30 TAB 2 Refills Oxycodone/Acetaminophen 5MG/325MG (Percocet 5MG/325MG) Tab 1 TAB PO Q4H PRN for Pain, #24 TAB PAIN Pantoprazole (Pantoprazole Sodium) 40 Mg Tab 40 MG PO BID for 30 Days, #60 TAB 2 Refills Continued Medications: Albuterol Hfa (Ventolin Hfa) 200 Puffs/02553 Mcg Aers 2-4 PUFFS INH Q6H PRN for Wheezing, #1 INHALER Atorvastatin (Lipitor) 20 Mg Tab 20 MG PO DAILY, TAB Budesonide/Formoterol Fumarate (Symbicort 160/4.5 Inhaler ) Aero 2 PUFFS INH BID, INHALER Dutasteride (Avodart) 0.5 Mg Cap 0.5 MG PO DAILY Folic Acid (Folic Acid) 1 Mg Tab 1 MG PO DAILY Levalbuterol (Levalbuterol HCl) 0.63 Mg/3 Ml Nebu 3 ML NEB Q8 PRN for Wheezing Methotrexate (Methotrexate) 2.5 Mg Tab 3 TABS PO WK, TAB Takes every Sunday. Tamsulosin Hcl (Flomax) 0.4 Mg Cap 0.4 MG PO HS Discontinued Medications: Aspirin (Aspirin Ec) 81 Mg Tab 81 MG PO DAILY Prednisone (Prednisone) 5 Mg Tab 2.5 MG PO QAM, TAB Admission Information HPI (per Admitting provider): This is an 81yo M with Mary D Cell Carcinoma with metastasis, bronchiectasis/ COPD, RA, DM II (diet controlled), BPH, HLD and tobacco use disorder who presents with bloody diarrhea that began this afternoon. States that his first two episodes were black with clots and the following 3 episodes were diarrhea with bright red blood. Associated with intermittent lower abdominal pain; denies nausea or vomiting. Presented in May 2017 with similar symptoms and was evaluated with an EGD and colonoscopy without definitive source. Patient was diagnosed with PENITENTIARY last year and underwent chemo and radiation. Follows with Dr. Rodas for heme/onc. In July, underwent MRI and PET scan that showed diffuse mets to lung, bone and brain. Patient decided at this point to stop chemo therapy and just try supportive measures. Continues to take weekly methotrexate for rheumatoid arthritis and received steroid injections in shoulder and hip yesterday. Has an enlarged prostate that causes incontinence and has a sandhu in place. Takes a baby aspirin daily and endorses taking aleve the past few days but not regularly. Denies fever, chills, lightheadedness, headache, visual changes, palpitations, CP, SOB, nausea, vomiting, LE swelling. Patient is not interested in invasive measures at this point, including a colonoscopy. Is currently a DNR but has agreed to speak with palliative care in an effort to better outline goals of care. Physical Exam (per Admitting): General Appearance: WD/WN, no apparent distress, + pertinent finding ( Chronically ill appearing. ) Head: normocephalic, atraumatic Eyes: normal inspection, PERRL, sclerae normal ENT: normal ENT inspection, hearing grossly normal, pharynx normal (dry mucous membranes ) Neck: supple, thyroid normal Respiratory/Chest: chest non-tender, lungs clear, no respiratory distress, no accessory muscle use Cardiovascular: regular rate, rhythm, no murmur, normal peripheral pulses Abdomen/GI: non tender, soft, no organomegaly Genitourinary - Male: + pertinent finding (sandhu in place) Back: normal inspection Extremities/Musculoskelatal: normal inspection, no calf tenderness, no pedal edema Neurologic/Psych: no motor/sensory deficits, alert, normal mood/affect, oriented x 3 Skin: + pallor Hospital Course This is an 81yo M with Mary D Cell Carcinoma with metastasis, bronchiectasis/ COPD, RA, DM II (diet controlled), BPH, HLD and tobacco use disorder who presents with bloody diarrhea . Lower GI bleed: 4-5 episodes of Melena, hematochezia on day of presentation VS stable, Hgb at 12 Protonix 40mg inj BID GI consulted, not interested in scope Holding aspirin, prednisone will transfuse ig hb<8.0 no aggressive treatment as per family palliative care consult bleeding stopped change ppi to po advanced diet and tolerating fine hb 7.9 today bit family does not want any blood transfusion. want to take patient home plan for home hospice today RA: on methotrexate, folic acid Holding prednisone Tramadol 50mg Q4 PRN Percocet prn no complaints Mary D Cell Carcinoma: Widespread mets S/p chemo and radiation Decided not to pursue another round of chemo Palliative consulted to discuss goals of care pain control plan for home hospice Bronchiectasis/COPD: Stable on symbicort, xopenex nebs, albuterol PRN DM II: Diet controlled A1c of 5.6 in Jun 2017 Diabetic diet BPH: s/p Sandhu on flomax, avodart DVT Ppx: SCDs Code status: DNR discharged home with hospice care Total time spent on discharge = 30MINUTES This includes examination of the patient, discharge planning, medication reconciliation, and communication with other providers. Discharge Instructions Please take this sheet to every appointment for the next month Discharge Instructions Date of Service Sep 11, 2017. Admission Reason for Admission: Gi Bleed Discharge Discharge Diagnosis / Problem: GI BLEED, ANEMIA Discharge Goals Goal(s): Decrease discomfort Activity Recommendations Activity Limitations: resume your previous activity ( TOLERATED) . Instructions / Follow-Up Instructions / Follow-Up FOLLOWUP WITH FAMILY DOCTOR NEEDED STOPPED ASPIRIN AND PREDNISONE FOR GI BLEED. IF BLOOD PRESSURE DROPS AND NO BLEEDING CAN RESTART PREDNISONE. Current Hospital Diet Patient's current hospital diet: Diabetes Type 2 Diet, Regular Diet Discharge Diet Recommended Diet: Regular Diet, Diabetes Type 2 Diet Pending Studies Studies pending at discharge: no Medical Emergencies . Who to Call and When: Medical Emergencies: If at any time you feel your situation is an emergency, please call 911 immediately. . Non-Emergent Contact Non-Emergency issues call your: Primary Care Provider . . "Provider Documentation" section prepared by Walter Means. . VTE Core Measure Inpt VTE Proph given/why not?: SCD's
--- NOTE | 2017-09-14 07:25 | EDITING REQUIRED CODING QUERY ---
ANEMIA To promote full compliance with coding requirements relating to patient care, physician participation is requested in all cases of reimbursement spec uncertainty. Please assist us with the question(s) below: Coding Question(s): The record reflects the following clinical findings: If these findings are indicative of anemia, please specify the known or suspected type by placing an "X" within the parenthesis (x). If other, please document type. Examples are: (x ) Acute blood loss anemia ( ) Acute Postoperative blood loss anemia ( ) Acute postoperative anemia due to dilutional fluids ( ) Chronic blood loss anemia ( ) Anemia of chronic disease ( ) Aplastic anemia ( ) Anemia due to renal disease ( ) Anemia in neoplastic disease ( ) Iron deficient anemia ( ) Anemia, unspecified or other ( ) Other: (please specify) ( ) Unable to determine Thank you Nai Gordon
== END 2017-09-11 14:27 | disposition hospice, home (50) | DRG 378 ==
LOC: EDBD 14:20 → C.EDB 14:21 → C.4E 17:24 → ENRESERV 18:33
PROVIDERS: ADMIT Family Medicine; ATTEND Internal Medicine
DX: K57.31 Diverticulosis of large intestine without perforation or abscess with bleeding (principal); D62 Acute posthemorrhagic anemia; C79.51 Secondary malignant neoplasm of bone; G89.3 Neoplasm related pain (acute) (chronic); C4A.9 Merkel cell carcinoma, unspecified; Z51.5 Encounter for palliative care; N40.1 Benign prostatic hyperplasia with lower urinary tract symptoms; N39.498 Other specified urinary incontinence; J44.9 Chronic obstructive pulmonary disease, unspecified; E78.5 Hyperlipidemia, unspecified; E11.9 Type 2 diabetes mellitus without complications; J84.10 Pulmonary fibrosis, unspecified; M06.9 Rheumatoid arthritis, unspecified; H91.90 Unspecified hearing loss, unspecified ear; F17.220 Nicotine dependence, chewing tobacco, uncomplicated; Z79.899 Other long term (current) drug therapy; Z79.52 Long term (current) use of systemic steroids; Z79.82 Long term (current) use of aspirin; Z66 Do not resuscitate; Z87.19 Personal history of other diseases of the digestive system; Z92.21 Personal history of antineoplastic chemotherapy; Z92.3 Personal history of irradiation; Z83.79 Family history of other diseases of the digestive system; Z80.6 Family history of leukemia